=== PATIENT | male | born 1980 | race Hispanic/Latino ===

== ENCOUNTER 2016-10-23 00:05 | Emergency (ER) | payer OTHER ==
[2016-10-23 01:08] VITALS: BMI 39.0
[2016-10-23 01:11] VITALS: BP 142/100; PULSE 76; RESP 15; TEMP 98.9; O2SAT 100
--- NOTE | 2016-10-23 01:34 | ED PDOC ---
Arrival/HPI - General Chief Complaint: Groin Pain Time Seen by Provider: 10/23/16 01:13 Historian: Patient - History of Present Illness Narrative History of Present Illness (Text): 10/23/16 01:33 Devante Correa is a 35 year old male who presents to the Emergency department complaining of right groin pain since yesterday. Patient notes denies any testicular pain and notes pain is present more so in right thigh. Patient also reports he spends on a lot of time standing and is complaining of lower back discomfort. Patient denies any fever, chills, chest pain, shortness of breath, nausea, vomiting, diarrhea, urinary symptoms, saddle paresthesias, weakness/ numbness/tingling in the extremities, neck pain, headache, dizziness, or any other complaints. Time/Duration: Other (yesterday) Symptom Onset: Gradual Symptom Course: Unchanged Activities at Onset: Rest, Light Context: Home Past Medical History - Provider Review Nursing Documentation Reviewed: Yes - Infectious Disease Hx of Infectious Diseases: None - Cardiac Hx Cardiac Disorders: No - Pulmonary Hx Asthma: Yes - Neurological Hx Neurological Disorder: No - HEENT Hx HEENT Disorder: No - Renal Hx Renal Disorder: No - Endocrine/Metabolic Hx Endocrine Disorders: No - Hematological/Oncological Hx Blood Disorders: No - Integumentary Hx Dermatological Disorder: No - Musculoskeletal/Rheumatological Hx Back Pain: Yes - Gastrointestinal Hx Gastrointestinal Disorders: No - Genitourinary/Gynecological Hx Genitourinary Disorders: Yes Other/Comment: overproductive spermatic cord - Psychiatric Hx Psychophysiologic Disorder: No Hx Substance Use: No - Anesthesia Hx Anesthesia: No Hx Anesthesia Reactions: No Hx Malignant Hyperthermia: No Family/Social History - Physician Review Nursing Documentation Reviewed: Yes Family/Social History: No Known Family HX Smoking Status: Never Smoked Hx Alcohol Use: Yes Hx Substance Use: No Allergies/Home Meds Allergies/Adverse Reactions: Allergies No Known Allergies Allergy (Verified 10/23/16 01:07) Review of Systems - Physician Review All systems were reviewed & negative as marked: Yes - Review of Systems Constitutional: Normal. absent: Fevers Eyes: Normal ENT: Normal Respiratory: Normal. absent: SOB, Cough Cardiovascular: Normal. absent: Chest Pain Gastrointestinal: Normal. absent: Abdominal Pain, Diarrhea, Nausea, Vomiting Genitourinary Male: Normal. absent: Dysuria, Frequency, Hematuria, Urinary Output Changes Musculoskeletal: Back Pain, Other (+right groin pain). absent: Neck Pain Skin: Normal. absent: Rash Neurological: Normal. absent: Headache, Dizziness Endocrine: Normal Hemo/Lymphatic: Normal Psychiatric: Normal Physical Exam Vital Signs Reviewed: Yes Vital Signs Temp Pulse Resp BP Pulse Ox 10/23/16 01:10 98.9 F 76 15 142/100 H 100 Temperature: Afebrile Blood Pressure: Normal Pulse: Regular Respiratory Rate: Normal Appearance: Positive for: Well-Appearing, Non-Toxic, Comfortable Pain Distress: None Mental Status: Positive for: Alert and Oriented X 3 - Systems Exam Head: Present: Atraumatic, Normocephalic Pupils: Present: PERRL Extroacular Muscles: Present: EOMI Conjunctiva: Present: Normal Mouth: Present: Moist Mucous Membranes Neck: Present: Normal Range of Motion Respiratory/Chest: Present: Clear to Auscultation, Good Air Exchange. No: Respiratory Distress, Accessory Muscle Use Cardiovascular: Present: Regular Rate and Rhythm, Normal S1, S2. No: Murmurs Abdomen: Present: Normal Bowel Sounds. No: Tenderness, Distention, Peritoneal Signs Back: Present: Normal Inspection Upper Extremity: Present: Normal Inspection. No: Cyanosis, Edema Lower Extremity: Present: Normal Inspection, NORMAL PULSES, Normal ROM, Neurovascularly Intact, Capillary Refill < 2 s. No: Edema, Cyanosis, Tenderness , Swelling, Erythema, Deformity, Temperature Abnormalties Neurological: Present: GCS=15, CN II-XII Intact, Speech Normal Skin: Present: Warm, Dry, Normal Color. No: Rashes Psychiatric: Present: Alert, Oriented x 3, Normal Insight, Normal Concentration Medical Decision Making ED Course and Treatment: 10/23/16 01:34 Impression: 35 year old male complaining of right groin pain and lower back discomfort. Plan: -- US Right Lower Extremity -- CT Lumbar Spine w/o contrast -- Reassess and disposition Prior Visits: Notes and results from previous visits were reviewed. Progress Notes: 10/23/16 01:54 US Right Lower Extremity shows no evidence of DVT. 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 Discs/spinal canal/neural foramina: Multilevel degenerative disc disease noted manifest as disc bulging and subtle disc osteophyte complexes as well as anterior bony spurring. Soft tissues: Unremarkable. IMPRESSION: 1. Multilevel degenerative disc disease noted manifest as disc bulging and subtle disc osteophyte complexes as well as anterior bony spurring. 2. What may reflect OPLL is noted at L1 and L2/3 resulting in mild spinal stenosis. 10/23/16 04:45 On re-evaluation, the patient feels better and is in no acute distress. I have discussed the results and plan with the patient, who expresses understanding. Patient in agreement with plan to discharged home. Patient is stable for discharge. Patient was instructed to follow up with physician/clinic in 1-2 days or return if symptoms worsen or new concerning symptoms arise. - RAD Interpretation Radiology Orders: 10/23/16 01:38 DUPLEX LOWER EXTRM VEIN RIGHT [US] Stat 10/23/16 01:39 LUMBAR SPINE W/O CONTRAST [CT] Stat - Scribe Statement The provider has reviewed the documentation as recorded by the Pilariblaurel Hayes Provider Attestation: All medical record entries made by the Scribe were at my direction and personally dictated by me. I have reviewed the chart and agree that the record accurately reflects my personal performance of the history, physical exam, medical decision making, and the department course for this patient. I have also personally directed, reviewed, and agree with the discharge instructions and disposition. Disposition/Present on Arrival - Present on Arrival Any Indicators Present on Arrival: No History of DVT/PE: No History of Uncontrolled Diabetes: No Urinary Catheter: No History of Decub. Ulcer: No History Surgical Site Infection Following: None - Disposition Have Diagnosis and Disposition been Completed?: Yes Diagnosis: Back pain, Lumbar radiculopathy Disposition: HOME/ ROUTINE Disposition Time: 05:00 Condition: GOOD Discharge Instructions (ExitCare): Back Pain (ED) Referrals: Ector Ceballos JD, MD [Primary Care Provider] - Follow up with primary Forms: WORK NOTE
--- NOTE | 2016-10-23 13:46 | CT ---
PROCEDURE: CT Lumbar Spine without contrast HISTORY: back pain COMPARISON: CT abdomen and pelvis 07/27/16 TECHNIQUE: Axial computed tomography images were obtained of the lumbar spine without the use of intravenous contrast. Coronal and sagittal reformatted images were created and reviewed. Radiation dose: Total exam DLP = 1122.63 mGy-cm. This CT exam was performed using one or more of the following dose reduction techniques: Automated exposure control, adjustment of the mA and/or kV according to patient size, and/or use of iterative reconstruction technique. FINDINGS: VERTEBRAE: No acute compression fractures no retropulsed fragments. Vertebral bodies exhibit normal stature. Vertebral bodies and facets normally aligned. DISCS/SPINAL CANAL/NEURAL FORAMINA: Mild multilevel degenerative spondylosis is present. At the T12-L1 level, there is disc space narrowing more so along the posterior disc margin with prominent on posterior osteophyte possibly associate with calcification - ossification of the posterior longitudinal ligament. Calcified density and does encroach into the ventral surface of the spinal canal resulting in mild canal stenosis and presumed compression of the thecal sac and possibly of the conus at this level on. At the L1-L2 level, there is minor posterior disc space narrowing. Minimal broad-based bulge of the posterior annulus results in some minimal flattening of the ventral surface of the thecal sac. The overall central canal appears marginal to minimally. Exit foramina appear adequate. At the L2-L3 level, there is also minor posterior disc space narrowing with small osteophytic ridge and/or calcification of the posterior longitudinal ligament that results in mild compression of the ventral surface of the thecal sac and mild canal narrowing. Facets are mildly hypertrophic. Exit foramina appear adequate. . At the L3-L4 level, there is minimal posterior disc space narrowing. No disc herniation or significant disc bulge. Facets are hypertrophic. Canal appears relatively adequate. Exit foramina are also adequate. At the L4-L5 level, mild disc space narrowing endplate eburnation. Small osteophytic ridge disc complex slightly larger on the left than right with some flattening of the ventral surface of thecal sac again more so on the left side. Central canal appears adequate. Facets hypertrophic with vacuum facet phenomena. Exit foramina are marginal to adequate. At the L5-S1 level, there is disc space narrowing. Minimal broad-based bulge of the posterior annulus. Facets are hypertrophic with vacuum facet phenomenon. . Central canal appears adequate. Proximal exit foramina are mildly narrowed PARASPINAL SOFT TISSUES: Unremarkable. OTHER FINDINGS: None. IMPRESSION: No acute fractures. Mild multilevel degenerative spondylosis most notably affecting the at T12-L1, L2-L3 and L5-S1 levels as described.
--- NOTE | 2016-10-24 08:15 | US ---
PROCEDURE: Right lower extremity venous US HISTORY: Leg pain and swelling. Evaluate for DVT. PHYSICIAN(S): Keegan Calderon M.D. TECHNIQUE: Duplex sonography and color-flow Doppler with graded compression were used to evaluate the deep venous system of the right lower extremity. FINDINGS: The visualized deep venous system of the right lower extremity is sonographically normal and compressible. Normal waveforms and augmentation are seen. There is no sonographic evidence for deep venous thrombosis in the visualized segments of the right lower extremity. IMPRESSION: 1. No sonographic evidence for deep venous thrombosis in the visualized segments of the right lower extremity.
== END 2016-10-23 04:45 | disposition home or self-care (01) ==
LOC: ED 00:05
DX: M54.16 Radiculopathy, lumbar region (principal); M54.9 Dorsalgia, unspecified

== ENCOUNTER 2017-01-30 13:14 | Emergency (ER) | payer OTHER ==
[2017-01-30 13:14] VITALS: BMI 39.0
--- NOTE | 2017-01-30 15:36 | ED PDOC ---
Arrival/HPI - General Historian: Patient - History of Present Illness Time/Duration: < week Symptom Onset: Gradual Symptom Course: Intermittent Quality: Pressure Severity Level: 4 Activities at Onset: Rest <Spencer Gómez - Last Filed: 01/30/17 18:23> <Germán Mustafa - Last Filed: 02/01/17 18:46> - General Chief Complaint: Headache Time Seen by Provider: 01/30/17 15:16 - History of Present Illness Narrative History of Present Illness (Text): 01/30/17 15:35 36yo M with PMHx of Asthma here for evaluation of headache. Pain started 3 days ago, comes and goes. Located on the lateral aspect of bilateral head, radiates to the top of the head. He c/o some vision changes that start after the onset of the headache. Headache comes and goes, the longest duration of the headache was about 5 hours. Denies any nausea, no vomiting. No Abd pain. No Fevers or chills. No Chest pain, shortness of breath. No sick contacts. No focal deficits. No further complaints. PMHx: Asthma PSHx: Denies Social Hx: Denies Tobacco use. Rare ETOH use. Denies any illicit drug use NKDA (Spencer Gómez) Past Medical History - Provider Review Nursing Documentation Reviewed: Yes - Infectious Disease Hx of Infectious Diseases: None - Cardiac Hx Cardiac Disorders: No - Pulmonary Hx Asthma: Yes - Neurological Hx Neurological Disorder: No - HEENT Hx HEENT Disorder: No - Renal Hx Renal Disorder: No - Endocrine/Metabolic Hx Endocrine Disorders: No - Hematological/Oncological Hx Blood Disorders: No - Integumentary Hx Dermatological Disorder: No - Musculoskeletal/Rheumatological Hx Back Pain: Yes - Gastrointestinal Hx Gastrointestinal Disorders: No - Genitourinary/Gynecological Hx Genitourinary Disorders: Yes Other/Comment: overproductive spermatic cord - Psychiatric Hx Psychophysiologic Disorder: No Hx Substance Use: No - Anesthesia Hx Anesthesia: No Hx Anesthesia Reactions: No Hx Malignant Hyperthermia: No <Spencer Gómez - Last Filed: 01/30/17 18:23> Family/Social History - Physician Review Nursing Documentation Reviewed: Yes Family/Social History: No Known Family HX Smoking Status: Never Smoked Hx Alcohol Use: Yes Hx Substance Use: No <Spencer Gómez - Last Filed: 01/30/17 18:23> Allergies/Home Meds <Spencer Gómez - Last Filed: 01/30/17 18:23> <Germán Mustafa P - Last Filed: 02/01/17 18:46> Allergies/Adverse Reactions: Allergies No Known Allergies Allergy (Verified 10/23/16 01:07) Home Medications: Home Meds Medication Instructions Recorded Confirmed Albuterol HFA [Ventolin HFA 90 2 puff IH PRN PRN 01/30/17 01/30/17 mcg/actuation (8 g)] Review of Systems - Physician Review All systems were reviewed & negative as marked: Yes - Review of Systems Constitutional: Normal. absent: Fevers Eyes: Vision Changes. absent: Photophobia, Eye Pain ENT: absent: Hearing Changes, Tinnitus, Voice Changes Respiratory: absent: Cough, Wheezing Cardiovascular: absent: Chest Pain, Edema, Calf Pain Gastrointestinal: absent: Abdominal Pain, Nausea, Vomiting Genitourinary Male: absent: Dysuria, Frequency Musculoskeletal: absent: Back Pain Neurological: Headache. absent: Dizziness Endocrine: absent: Diaphoresis, Polyuria, Polydipsia Psychiatric: absent: Anxiety, Depression <Spencer Gómez - Last Filed: 01/30/17 18:23> Physical Exam Vital Signs Reviewed: Yes Temperature: Afebrile Blood Pressure: Hypertensive Pulse: Regular Respiratory Rate: Normal Appearance: Positive for: Well-Appearing, Non-Toxic, Comfortable Pain Distress: Mild Mental Status: Positive for: Alert and Oriented X 3 - Systems Exam Head: Present: Atraumatic, Normocephalic Pupils: Present: PERRL Extroacular Muscles: Present: EOMI Mouth: Present: Moist Mucous Membranes Pharnyx: Present: Normal Respiratory/Chest: Present: Clear to Auscultation, Good Air Exchange. No: Respiratory Distress, Wheezes, Decreased Breath Sounds Cardiovascular: Present: Normal S1, S2. No: Murmurs Abdomen: Present: Normal Bowel Sounds. No: Tenderness, Distention, Peritoneal Signs, Rebound, Guarding Back: Present: Normal Inspection Upper Extremity: Present: Normal Inspection. No: Cyanosis, Edema Lower Extremity: Present: Normal Inspection. No: Edema, CALF TENDERNESS Neurological: Present: GCS=15, CN II-XII Intact, Speech Normal, Motor Func Grossly Intact, Normal Sensory Function, Gait Normal Skin: Present: Warm, Dry, Normal Color. No: Diaphoretic Psychiatric: Present: Alert, Oriented x 3, Normal Insight <Spencer Gómez - Last Filed: 01/30/17 18:23> Medical Decision Making <Spencer Gómez - Last Filed: 01/30/17 18:23> <Germán Mustafa - Last Filed: 02/01/17 18:46> ED Course and Treatment: 01/30/17 16:42 36yo M with PMHx of Asthma here for evaluation of headache for 3 days - CT Head - Reglan - Reassess and dispo 01/30/17 16:50 - BP 150s/100s on triage noted. - Repeat BP 146/96. - Awaiting CT 01/30/17 18:14 Reevaluated patient. Patient feels better. Discussed negative CT findings. Plan for close outpatient follow-up with PMD. Patient understands and agrees with plan. All questions and concerns addressed. CT Head - Negative for any acute findings. No bleed. No mass effect. (Spencer Gómez) Patient Seen With Resident: Patient was seen and evaluated with resident. Came up with plan and treatment together. Gradual onset headache that resolved completely then returns. No FH of brain aneurysms. +FH migraines. Normal neuro exam: nl CN, no focal deficits, normal cerebellar fxn, steady gait. Very low susp for SAH, do not feel LP is warranted at this time. Pt improved w rx in the ED. (Germán Mustafa) - RAD Interpretation Radiology Orders: 01/30/17 15:45 HEAD W/O CONTRAST [CT] Stat - Medication Orders Current Medication Orders: Discontinued Medications Metoclopramide HCl (Reglan) 10 mg IVP STAT STA Stop: 01/30/17 15:46 Last Admin: 01/30/17 16:30 Dose: 10 mg - PA / SLIP DUMPER / Resident Statement / has reviewed & agrees with the documentation as recorded. BECCA has examined the patient and agrees with the treatment plan. <Spencer Gómez - Last Filed: 01/30/17 18:23> - Scribe Statement The provider has reviewed the documentation as recorded by the Scribe <Germán Mustafa - Last Filed: 02/01/17 18:46> - Scribe Statement Bhupendra Albarran Provider Scribe Attestation: All medical record entries made by the Scribe were at my direction and personally dictated by me. I have reviewed the chart and agree that the record accurately reflects my personal performance of the history, physical exam, medical decision making, and the department course for this patient. I have also personally directed, reviewed, and agree with the discharge instructions and disposition. (Germán Mustafa) Disposition/Present on Arrival - Present on Arrival Any Indicators Present on Arrival: No History of DVT/PE: No History of Uncontrolled Diabetes: No Urinary Catheter: No History of Decub. Ulcer: No History Surgical Site Infection Following: None - Disposition Have Diagnosis and Disposition been Completed?: Yes Disposition Time: 18:16 Patient Plan: Discharge <Spencer Gómez - Last Filed: 01/30/17 18:23> <Germán Mustafa - Last Filed: 02/01/17 18:46> - Disposition Diagnosis: Headache Disposition: HOME/ ROUTINE Condition: GOOD Discharge Instructions (ExitCare): Tension Headache (ED) Additional Instructions: 1. Follow up with your primary care physician as soon as possible 2. Rest and stay well hydrated 3. Return to the ER with any concerning symptoms Referrals: PCP,NO [Primary Care Provider] - Follow up with primary Forms: [employer] ([place]an), WORK NOTE
[2017-01-30 17:29] VITALS: O2SAT 99
--- NOTE | 2017-01-30 17:39 | CT ---
PROCEDURE: CT HEAD WITHOUT CONTRAST. HISTORY: headache COMPARISON: None available. TECHNIQUE: Axial computed tomography images were obtained through the head/brain without intravenous contrast. Radiation dose: Total exam DLP = 809.98 mGy-cm. This CT exam was performed using one or more of the following dose reduction techniques: Automated exposure control, adjustment of the mA and/or kV according to patient size, and/or use of iterative reconstruction technique. FINDINGS: HEMORRHAGE: No intracranial hemorrhage. BRAIN: No mass effect or edema. No atrophy or chronic microvascular ischemic changes. VENTRICLES: Unremarkable. No hydrocephalus. CALVARIUM: Unremarkable. PARANASAL SINUSES: Unremarkable as visualized. No significant inflammatory changes. MASTOID AIR CELLS: Unremarkable as visualized. No inflammatory changes. OTHER FINDINGS: None. IMPRESSION: No acute intracranial abnormalities. No significant findings to account for the clinical presentation.
[2017-01-30 18:53] VITALS: BP 148/80; PULSE 82; RESP 16; TEMP 98
== END 2017-01-30 18:51 | disposition home or self-care (01) ==
LOC: ED 13:14
DX: R51 Headache (principal)
CPT/HCPCS: 70450; 96374; 99284; J2765

== ENCOUNTER 2017-02-06 16:08 | Emergency (ER) | payer OTHER ==
[2017-02-06 16:11] VITALS: BMI 39.0
[2017-02-06 16:16] VITALS: TEMP 97.5
[2017-02-06] MEDS ORDERED: Sodium Chloride 0.9% 1,000 ML IV STA (16:30)
[2017-02-06 17:34] LABS: URINE BILIRUBIN NEGATIVE (NEGATIVE); URINE BLOOD TRACE-INTACT (NEGATIVE); URINE GLUCOSE (UA) NEGATIVE (NEGATIVE); URINE LEUKOCYTE ESTERASE NEGATIVE Leu/uL (NEGATIVE); URINE NITRATE NEGATIVE (NEGATIVE); URINE PROTEIN 100 mg/dL (<30 mg/dL); URINE UROBILINOGEN 0.2 E.U./dL (<1 E.U./dL)
[2017-02-06 17:38] LABS: BASO # 0.02 K/mm3 (0.0-2.0); BASO % 0.3 % (0.0-3.0); EOS # 0.2 (0.0-0.7); GRAN # 4.93 (1.4-6.5); GRAN % 65.5 % (50.0-68.0); HEMOGLOBIN 13.4 g/dL (14.0-18.0); LYMPH # 1.8 (1.2-3.4); MEAN CELL VOLUME 79.2 fl (80.0-105.0); MEAN CORPUSCULAR HEMOGLOBIN 26.9 pg (25.0-35.0); MEAN CORPUSCULAR HGB CONC 33.9 g/dl (31.0-37.0); MEAN PLATELET VOLUME 10.3 fl (7.0-11.0); MONO # 0.6 (0.1-0.6); MONO % 8.2 % (1.0-6.0); PLATELET COUNT 239 10^3/uL (120.0-450.0); RBC 4.99 10^6/uL (3.5-6.1); RED CELL DISTRIBUTION WIDTH 13.4 % (11.5-14.5); WHITE BLOOD COUNT 7.5 10^3/ul (4.5-11.0)
[2017-02-06 17:38] LABS: URINE APPEARANCE TURBID (CLEAR); URINE COLOR YELLOW (YELLOW)
--- NOTE | 2017-02-06 17:38 | RAD ---
HISTORY: chest pain COMPARISON: None available. TECHNIQUE: Chest, one view. FINDINGS: Examination limited by habitus. LUNGS: No focal consolidation. Please note that chest x-ray has limited sensitivity for the detection of pulmonary masses. PLEURA: No significant pleural effusion identified. No definite pneumothorax . CARDIOVASCULAR: The cardiomediastinal silhouette appears within normal limits of size. OSSEOUS STRUCTURES: No acute osseous abnormality identified. VISUALIZED UPPER ABDOMEN: Unremarkable. OTHER FINDINGS: None. IMPRESSION: No focal consolidation, significant pleural effusion, or definite pneumothorax identified.
[2017-02-06 17:47] LABS: SALICYLATE < 1 mg/dL (2.0-20.0)
[2017-02-06 17:48] LABS: ALB/GLOB RATIO 1.5 (1.1-1.8); ALBUMIN 4.2 g/dL (3.0-4.8); ALT/SGPT 28 U/L (7-56); AST/SGOT 21 U/L (15-59); BLOOD UREA NITROGEN 11 mg/dL (7-21); GFR AFRICAN-AMERICAN > 60; GFR NON-AFRICAN AMERICAN > 60
[2017-02-06 17:52] LABS: BARBITURATES, UR POSITIVE (NEGATIVE); BENZODIAZEPINES, UR NEGATIVE (NEGATIVE); OPIATES, UR NEGATIVE (NEGATIVE); PHENCYCLIDINE, UR NEGATIVE (NEGATIVE)
[2017-02-06 17:52] LABS: ACETAMINOPHEN < 10.0 ug/ml (10.0-20.0); PARTIAL THROMBOPLASTIN TIME 27.5 Seconds (23.7-30.8); PROTHROMBIN TIME 10.8 Seconds (9.9-11.8)
[2017-02-06 17:53] LABS: D DIMER 0.64 mg/L FEU (0-0.50)
[2017-02-06 17:55] LABS: URINE BACTERIA TRACE (NEG); URINE EPITHELIAL CELLS 0 - 2 /hpf (0-5); URINE RBC 0 - 2 /hpf (0-2); URINE WBC 0 - 2 /hpf (0-6)
[2017-02-06 18:00] LABS: TROPONIN I < 0.01 ng/mL
[2017-02-06 18:04] LABS: CK-MB 1.5 ng/mL (0.0-3.6)
--- NOTE | 2017-02-06 18:04 | ED PDOC ---
Arrival/HPI - General Chief Complaint: Chest Pain Time Seen by Provider: 02/06/17 16:13 Historian: Patient - History of Present Illness Narrative History of Present Illness (Text): 02/06/17 18:00 36-year-old male presents today with chest pain shortness of breath headache dizziness and feeling shaky. Patient states symptoms started around 3:00 today for which he then took 6 ESGIC tablets to relieve his headache. Patient states he's been having headaches on and off for the past week. He was seen in the emergency room had a CAT scan of the head which was normal. Patient was then seen by his primary care physician and started on theseESGIC tablets for which he took too many today. Patient states the headache has since resolved. He is now still complaining of chest pain and shortness of breath. Complaining of dizziness and generalized weakness. Patient states he feels very shaky.Patient denies a history of smoking. Patient denies a history of recent travel. Denies lower leg pain. Denies abdominal pain. No nausea or vomiting. Past Medical History - Provider Review Nursing Documentation Reviewed: Yes - Travel History Have you recently traveled outside [place] w/in the past 3 mons?: No - Infectious Disease Hx of Infectious Diseases: None - Tetanus Immunization Tetanus Immunization: Unknown - Cardiac Hx Cardiac Disorders: No - Pulmonary Hx Asthma: Yes - Neurological Hx Neurological Disorder: No - HEENT Hx HEENT Disorder: No - Renal Hx Renal Disorder: No - Endocrine/Metabolic Hx Endocrine Disorders: No - Hematological/Oncological Hx Blood Disorders: No - Integumentary Hx Dermatological Disorder: No - Musculoskeletal/Rheumatological Hx Back Pain: Yes - Gastrointestinal Hx Gastrointestinal Disorders: No - Genitourinary/Gynecological Hx Genitourinary Disorders: Yes Other/Comment: overproductive spermatic cord - Psychiatric Hx Psychophysiologic Disorder: No Hx Substance Use: No - Anesthesia Hx Anesthesia: No Hx Anesthesia Reactions: No Hx Malignant Hyperthermia: No Family/Social History - Physician Review Nursing Documentation Reviewed: Yes Family/Social History: Unknown Family HX Smoking Status: Never Smoked Hx Alcohol Use: Yes Hx Substance Use: No Allergies/Home Meds Allergies/Adverse Reactions: Allergies No Known Allergies Allergy (Verified 10/23/16 01:07) Home Medications: Home Meds Medication Instructions Recorded Confirmed Acetaminophen/Butalbital/Caf 1 tab PO PRN PRN 02/06/17 02/06/17 [Fioricet] Review of Systems - Review of Systems Constitutional: Fatigue. absent: Fevers ENT: absent: Sore Throat, Sinus Congestion Respiratory: SOB Cardiovascular: Chest Pain Gastrointestinal: absent: Abdominal Pain, Vomiting, Anorexia Genitourinary Male: absent: Dysuria Musculoskeletal: absent: Arthralgias, Back Pain Skin: absent: Rash, Pruritis Neurological: Headache, Dizziness Psychiatric: Anxiety (hx of anxiety). absent: Depression, Suicidal Ideation Physical Exam Vital Signs Reviewed: Yes Vital Signs Temp Pulse Resp BP Pulse Ox 02/06/17 20:02 80 16 147/75 98 02/06/17 17:50 156/103 H 02/06/17 16:15 97.5 F L 88 24 192/121 H 99 Temperature: Afebrile Blood Pressure: Hypertensive Pulse: Regular Respiratory Rate: Normal Appearance: Positive for: Well-Appearing, Non-Toxic, Comfortable Pain Distress: None Mental Status: Positive for: Alert and Oriented X 3 - Systems Exam Head: Present: Atraumatic Pupils: Present: PERRL Extroacular Muscles: Present: EOMI Conjunctiva: Present: Normal Ears: Present: Normal Mouth: Present: Moist Mucous Membranes Neck: Present: Normal Range of Motion Respiratory/Chest: Present: Clear to Auscultation Cardiovascular: Present: Regular Rate and Rhythm Abdomen: No: Tenderness Upper Extremity: Present: Other (Muscle strength 5 out of 5 bilaterally) Lower Extremity: Present: Other (Muscle strength 5 out of 5 bilaterally). No: CALF TENDERNESS Neurological: Present: GCS=15, Motor Func Grossly Intact, Normal Sensory Function, Gait Normal Skin: Present: Warm, Dry, Normal Color. No: Rashes Psychiatric: Present: Alert, Oriented x 3 Medical Decision Making ED Course and Treatment: 02/06/17 18:05 36yr old male with HTN with cp and sob. with headache that resolved after taking 6 FIorcets. cbc; wnl cmp; wnl ekg; normal sinus rhythm at [address] elevations and normal intervals cxr; wnl tylenol; wnl Alcohol wnl Salicylates within normal limits. Urinalysis: Trace blood Urine drug screen positive for barbiturates Repeat Tylenol level at the 4 hour raquel from the onset of ingestion is within normal limits d-dimer slightly elevated at 0.64 CAT scan angiography of the chest: FINDINGS: Limitations: Motion artifact - mild. Suboptimal contrast opacification. Pulmonary arteries: No definite pulmonary embolism. Aorta: No aneurysm. No dissection. Lungs: No consolidation. 0.4 cm LEFT lower lobe nodule. Pleural space: No significant effusion. No pneumothorax. Heart: No cardiomegaly. No significant pericardial effusion. Bones/joints: No acute fracture. No dislocation. Soft tissues: Minimal gynecomastia. Lymph nodes: No pathologically enlarged lymph nodes. IMPRESSION: 1. No definite CT evidence of pulmonary embolism. 2. Pulmonary nodules. For low-risk patients, no follow-up is necessary. For high-risk patients (smoking history or other known risk factors) an optional CT at 12 months could be performed. 3. Incidental/non-acute findings are described above. Patient was offered admission to the hospital for chest pain shortness of breath and recurrent headaches with elevated blood pressure. Patient refused admission to the hospital states he needs to go home. Does not want to stay in the hospital. Patient has been advised to not leave the emergency room but has decided to go AGAINST MEDICAL ADVICE. The patient possesses capacity to make decisions and has voiced understanding to all my warnings of potential worsening of the condition for which medical care was sought. I have discussed all known and potential risks and consequences to the patient leaving AGAINST MEDICAL ADVICE. Patient is leaving against medical advise. AMA form signed. witness by MACIE nieves. I have advised the patient that he can return at any point in time to continue his care. I've advised follow-up with a drum builder and neurologist. all aspects of this case were discussed the attending of record. Impression: Chest pain, shortness of breath, headache, hypertension AMA RETURN IF YOU WISH TO CONTINUE YOUR CARE FOLLOW UP WITH THE HOLE DIGGER FOLLOW UP WITH THE NEUROLOGIST FOLLOW UP WITH YOUR PRIMARY CARE PHYSICIAN - Lab Interpretations Lab Results: 02/06/17 17:23 02/06/17 17:23 Lab Results 02/06/17 20:20: Acetaminophen < 10.0 L 02/06/17 17:23: PT 10.8, INR 1.00, APTT 27.5, D-Dimer, Quantitative 0.64 H 02/06/17 17:23: WBC 7.5 D, RBC 4.99, Hgb 13.4 L, Hct 39.5 L, MCV 79.2 L, MCH 26.9, MCHC 33.9, RDW 13.4, Plt Count 239, MPV 10.3, Gran % 65.5, Lymph % (Auto) 24.0, [place] % (Auto) 8.2 H, Eos % (Auto) 2.0, Baso % (Auto) 0.3, Gran # 4.93, Lymph # 1.8, [place] # 0.6, Eos # 0.2, Baso # 0.02 02/06/17 17:23: Salicylates < 1 L, Acetaminophen < 10.0 L 02/06/17 17:23: Alcohol, Quantitative < 10 02/06/17 17:23: Sodium 139, Potassium 3.4 L, Chloride 104, Carbon Dioxide 23, Anion Gap 15, BUN 11, Creatinine 0.9, Est GFR ( Amer) > 60, Est GFR (Non- Af Amer) > 60, Random Glucose 116 H, Calcium 9.0, Total Bilirubin 0.3, AST 21, ALT 28, Alkaline Phosphatase 47, Lactate Dehydrogenase 386, Total Creatine Kinase 276 H, CK-MB (CK-2) 1.5, CK-MB (CK-2) % Cancelled, Troponin I < 0.01, Total Protein 6.9, Albumin 4.2, Globulin 2.8, Albumin/Globulin Ratio 1.5 02/06/17 17:10: Urine Opiates Screen Negative, Urine Methadone Screen Negative, Ur Barbiturates Screen Positive H, Ur Phencyclidine Scrn Negative, Ur Amphetamines Screen Negative, U Benzodiazepines Scrn Negative, U Oth Cocaine Metabols Negative, U Cannabinoids Screen Negative 02/06/17 17:10: Urine Color Yellow, Urine Appearance Turbid, Urine pH 7.0, Ur Specific [place] 1.020, Urine Protein 100 H, Urine Glucose (UA) Negative, Urine Ketones Negative, Urine Blood Trace-intact H, Urine Nitrate Negative, Urine Bilirubin Negative, Urine Urobilinogen 0.2, Ur Leukocyte Esterase Negative, Urine RBC 0 - 2, Urine WBC 0 - 2, Ur Epithelial Cells 0 - 2, Urine Bacteria Trace - RAD Interpretation Radiology Orders: 02/06/17 16:28 CHEST PORTABLE [RAD] Stat 02/06/17 18:27 ANGIO CHEST PE PROTOCOL [CT] Stat - Medication Orders Current Medication Orders: Discontinued Medications Sodium Chloride (Sodium Chloride 0.9%) 1,000 mls @ 999 mls/hr IV .Q1H1M STA Stop: 02/06/17 17:30 Last Admin: 02/06/17 17:32 Dose: 999 mls/hr Iohexol (Omnipaque 350 100 Ml) Confirm Administered Dose 350 mg .ROUTE .STK-MED ONE Stop: 02/06/17 18:40 Metoclopramide HCl (Reglan) 10 mg IVP STAT STA Stop: 02/06/17 16:31 Last Admin: 02/06/17 17:32 Dose: 10 mg Disposition/Present on Arrival - Present on Arrival Any Indicators Present on Arrival: No History of DVT/PE: No History of Uncontrolled Diabetes: No Urinary Catheter: No History of Decub. Ulcer: No History Surgical Site Infection Following: None - Disposition Have Diagnosis and Disposition been Completed?: Yes Diagnosis: Chest pain, Shortness of breath, Headache, Hypertension Disposition: AGAINST MEDICAL ADVICE Disposition Time: 21:41 Patient Plan: Other (AMA) Patient Problems: Current Active Problems Problem Status Onset Chest pain Acute Headache Acute Hypertension Acute Shortness of breath Acute Condition: UNKNOWN Discharge Instructions (ExitCare): Chest Pain (ED) Additional Instructions: RETURN IF YOU WISH TO CONTINUE YOUR CARE FOLLOW UP WITH THE HOLE DIGGER FOLLOW UP WITH THE NEUROLOGIST FOLLOW UP WITH YOUR PRIMARY CARE PHYSICIAN Referrals: Katherin Martinez MD [Primary Care Provider] - Follow up with primary Keegan Hale MD [Staff Provider] - Follow up with primary Kulwant Aragon MD [Staff Provider] - Follow up with primary Forms: [facility] (Yoruba), WORK NOTE
[2017-02-06] MEDS ORDERED: Iohexol 350 MG/100 ML VIAL ONE (18:39)
--- NOTE | 2017-02-06 19:06 | CARD ---
APPROVED REPORT EKG Measurement Heart [id number] [place] [id number] [id number] <Conclusion> Normal sinus rhythm Possible Left atrial enlargement Left ventricular hypertrophy Prolonged QT Abnormal ECG
--- NOTE | 2017-02-06 19:07 | CARD ---
APPROVED REPORT EKG Measurement Heart [id number] [place] [id number] [id number] <Conclusion> Normal sinus rhythm Left ventricular hypertrophy with QRS widening Abnormal ECG
[2017-02-06 20:02] VITALS: RESP 16
--- NOTE | 2017-02-06 21:25 | CT ---
EXAM: CT Angiography Chest With Intravenous Contrast CLINICAL HISTORY: 36 years old, male; Pain; Chest pressure; Additional info: Cp SOB TECHNIQUE: Axial computed tomographic angiography images of the chest with intravenous contrast using pulmonary embolism protocol. All CT scans at this facility use one or more dose reduction techniques, viz.: automated exposure control; ma/kV adjustment per patient size (including targeted exams where dose is matched to indication; i.e. head); or iterative reconstruction technique. MIP reconstructed images were created and reviewed. Coronal and sagittal reformatted images were created and reviewed. CONTRAST: 100 mL of omni administered intravenously. COMPARISON: DX - CHEST PORTABLE 02/06/2017 4:42:45 PM FINDINGS: Limitations: Motion artifact - mild. Suboptimal contrast opacification. Pulmonary arteries: No definite pulmonary embolism. Aorta: No aneurysm. No dissection. Lungs: No consolidation. 0.4 cm LEFT lower lobe nodule. Pleural space: No significant effusion. No pneumothorax. Heart: No cardiomegaly. No significant pericardial effusion. Bones/joints: No acute fracture. No dislocation. Soft tissues: Minimal gynecomastia. Lymph nodes: No pathologically enlarged lymph nodes. IMPRESSION: 1. No definite CT evidence of pulmonary embolism. 2. Pulmonary nodules. For low-risk patients, no follow-up is necessary. For high-risk patients (smoking history or other known risk factors) an optional CT at 12 months could be performed. 3. Incidental/non-acute findings are described above.
[2017-02-06 22:42] VITALS: BP 164/90; PULSE 76; O2SAT 99
== END 2017-02-06 22:25 | disposition left against medical advice (07) ==
LOC: ED 16:08
DX: I10 Essential (primary) hypertension (principal); R07.9 Chest pain, unspecified; R06.02 Shortness of breath; R51 Headache
CPT/HCPCS: 71010; 71275; 80053; 80320; 80324; 80329; 80345; 80346; 80349; 80353; 80358; 80361; 81001; 82550; 82553; 83615; 83992; 84484; 85025; 85378; 85610; 85730; 93005; 96361; 96374; 99284; J2765; J7040; Q9967

== ENCOUNTER 2017-02-25 19:22 | Emergency (ER) | payer OTHER ==
[2017-02-25 19:28] VITALS: BMI 40.7
[2017-02-25 19:34] VITALS: TEMP 98.3
--- NOTE | 2017-02-25 19:40 | ED PDOC ---
Arrival/HPI - General Chief Complaint: Chest Pain Time Seen by Provider: 02/25/17 19:29 Historian: Patient - History of Present Illness Narrative History of Present Illness (Text): 02/25/17 19:41 A 36 year old male, whose past medical history includes, asthma, htn, and a epididymal cyst, presents to the emergency department for chest pain and palpitations, which began 1 hour ago. The patient states the pain in non- radiating. The patient denies any fevers, shortness of breath, cough, abdominal pain, or any other complaints at this time. Time/Duration: 1 hour Symptom Onset: Sudden Symptom Course: Unchanged Activities at Onset: Light Context: Home Past Medical History - Provider Review Nursing Documentation Reviewed: Yes - Infectious Disease Hx of Infectious Diseases: None - Tetanus Immunization Tetanus Immunization: Unknown - Cardiac Hx Cardiac Disorders: No Hx Hypertension: Yes - Pulmonary Hx Asthma: Yes - Neurological Hx Neurological Disorder: No - HEENT Hx HEENT Disorder: No - Renal Hx Renal Disorder: No - Endocrine/Metabolic Hx Endocrine Disorders: No - Hematological/Oncological Hx Blood Disorders: No - Integumentary Hx Dermatological Disorder: No - Musculoskeletal/Rheumatological Hx Back Pain: Yes - Gastrointestinal Hx Gastrointestinal Disorders: No - Genitourinary/Gynecological Hx Genitourinary Disorders: Yes Other/Comment: overproductive spermatic cord - Psychiatric Hx Psychophysiologic Disorder: No Hx Substance Use: No - Anesthesia Hx Anesthesia: No Hx Anesthesia Reactions: No Hx Malignant Hyperthermia: No Family/Social History - Physician Review Nursing Documentation Reviewed: Yes Family/Social History: No Known Family HX Smoking Status: Never Smoked Hx Alcohol Use: Yes Hx Substance Use: No Allergies/Home Meds Allergies/Adverse Reactions: Allergies No Known Allergies Allergy (Verified 02/25/17 19:28) Home Medications: Home Meds Medication Instructions Recorded Confirmed Atenolol [Tenormin] 25 mg PO DAILY 02/25/17 02/25/17 Review of Systems - Physician Review All systems were reviewed & negative as marked: Yes - Review of Systems Constitutional: absent: Fevers Respiratory: absent: SOB, Cough Cardiovascular: Chest Pain, Palpitations Gastrointestinal: absent: Abdominal Pain Physical Exam Vital Signs Reviewed: Yes Vital Signs Temp Pulse Resp BP Pulse Ox 02/25/17 21:00 87 16 143/80 99 02/25/17 20:30 91 H 16 154/95 H 99 02/25/17 20:00 92 H 16 150/86 99 02/25/17 19:33 98.3 F 93 H 14 145/83 97 02/25/17 19:28 93 H 14 Temperature: Afebrile Blood Pressure: Normal Pulse: Tachycardic Respiratory Rate: Normal Appearance: Positive for: Well-Appearing, Non-Toxic, Comfortable Pain Distress: None Mental Status: Positive for: Alert and Oriented X 3 - Systems Exam Head: Present: Atraumatic, Normocephalic Pupils: Present: PERRL Extroacular Muscles: Present: EOMI Conjunctiva: Present: Normal Mouth: Present: Moist Mucous Membranes Neck: Present: Normal Range of Motion Respiratory/Chest: Present: Clear to Auscultation, Good Air Exchange. No: Respiratory Distress, Accessory Muscle Use Cardiovascular: Present: Regular Rate and Rhythm, Normal S1, S2. No: Murmurs Abdomen: Present: Normal Bowel Sounds. No: Tenderness, Distention, Peritoneal Signs Back: Present: Normal Inspection Upper Extremity: Present: Normal Inspection. No: Cyanosis, Edema Lower Extremity: Present: Normal Inspection. No: Edema Neurological: Present: GCS=15, CN II-XII Intact, Speech Normal Skin: Present: Warm, Dry, Normal Color. No: Rashes Psychiatric: Present: Alert, Oriented x 3, Normal Insight, Normal Concentration Medical Decision Making ED Course and Treatment: 02/25/17 19:42 Impression: A 36 year old male with chest pain. Plan: -- EKG -- Chest X-ray -- Labs -- Nasal Cannula -- Urinalysis -- Reassess and disposition Prior Visits: Notes and results from previous visits were reviewed. The patient was last seen in the emergency department on 02/06/17 for anxiety. The patient was discharged home. Progress Notes: Reviewed EKG, NSR at 92 bpm[address] Non-specific ST/T wave changes. 02/25/17 20:25 Reviewed radiology, CXR shows no acute processes. 02/25/17 20:[address] Fry, who is aware and agrees with plan. Accepts pt in to hospitalist service. logistics vice president notified. 02/25/17 21:05 Leaving Against Medical Advice (AMA): The patient is choosing to leave against medical advice. I have personally explained to the patient that choosing to do so may result in permanent bodily harm or . I have discussed at great length that without further evaluation and monitoring there may be unforeseen circumstances and/or deterioration causing permanent bodily harm or as a result of their choice. The patient is alert, oriented, and shows the mental capacity to make clear decisions regarding the patients health care at this time. The patient continues to wish to leave against medical advice. In light of the patients decision to leave against medical advice, follow-up has been arranged and the patient is aware of the importance to following up as instructed. The patient has been advised that they should return to the emergency room immediately if they change their mind at any time, or if their condition begins to change or worsen in any way./ - Lab Interpretations Lab Results: 02/25/17 19:30 02/25/17 19:30 Lab Results 02/25/17 19:30: Sodium 141, Potassium 4.1, Chloride 104, Carbon Dioxide 25, Anion Gap 16, BUN 12, Creatinine 1.0, Est GFR ( Amer) > 60, Est GFR (Non- Af Amer) > 60, Random Glucose 112 H, Calcium 9.4, Magnesium 2.0, Total Bilirubin 0.4, AST 29, ALT 37, Alkaline Phosphatase 58, Lactate Dehydrogenase 411, Total Creatine Kinase 147, Troponin I < 0.01, Total Protein 7.6, Albumin 4.3, Globulin 3.3, Albumin/Globulin Ratio 1.3 02/25/17 19:30: WBC 9.6 D, RBC 5.51, Hgb 15.1, Hct 43.7, MCV 79.3 L, MCH 27.4, MCHC 34.6, RDW 13.5, Plt Count 271, MPV 10.4, Gran % 72.5 H, Lymph % (Auto) 19.0 L, [place] % (Auto) 6.5 H, Eos % (Auto) 1.8, Baso % (Auto) 0.2, Gran # 6.99 H , Lymph # 1.8, [place] # 0.6, Eos # 0.2, Baso # 0.02 I have reviewed the lab results: Yes - RAD Interpretation Radiology Orders: 02/25/17 19:39 CHEST PORTABLE [RAD] Stat Fender Mechanic: ED Physician - EKG Interpretation Interpreted by ED Physician: Yes Type: 12 lead EKG - Medication Orders Current Medication Orders: Discontinued Medications Aspirin (Ecotrin) 325 mg PO STAT STA Stop: 02/25/17 19:48 Last Admin: 02/25/17 20:04 Dose: 325 mg Lorazepam (Ativan) 1 mg PO ONCE ONE PRN Reason: Protocol Stop: 02/25/17 19:49 Last Admin: 02/25/17 20:04 Dose: 1 mg Nitroglycerin (Nitro-Bid 2% Oint) 1 ea TOP ONCE STA Stop: 02/25/17 19:48 Last Admin: 02/25/17 20:04 Dose: 1 ea - Scribe Statement Radha Bartlett Provider Scribe Attestation: All medical record entries made by the Scribe were at my direction and personally dictated by me. I have reviewed the chart and agree that the record accurately reflects my personal performance of the history, physical exam, medical decision making, and the department course for this patient. I have also personally directed, reviewed, and agree with the discharge instructions and disposition. Disposition/Present on Arrival - Present on Arrival Any Indicators Present on Arrival: No History of DVT/PE: No History of Uncontrolled Diabetes: No Urinary Catheter: No History of Decub. Ulcer: No History Surgical Site Infection Following: None - Disposition Have Diagnosis and Disposition been Completed?: Yes Diagnosis: Chest pain Disposition: AGAINST MEDICAL ADVICE Disposition Time: 21:30 Condition: UNKNOWN Discharge Instructions (ExitCare): Chest Pain (ED)
[2017-02-25] MEDS ORDERED: Nitroglycerin 2% Ointment Foilpak UD TOP STA (19:47)
[2017-02-25] MEDS ORDERED: Aspirin 325 mg EC Tablets PO STA (19:47)
[2017-02-25 19:57] LABS: BASO # 0.02 K/mm3 (0.0-2.0); BASO % 0.2 % (0.0-3.0); EOS # 0.2 (0.0-0.7); EOS % 1.8 % (1.5-5.0); GRAN # 6.99 (1.4-6.5); GRAN % 72.5 % (50.0-68.0); HEMATOCRIT 43.7 % (42.0-52.0); LYMPH # 1.8 (1.2-3.4); MEAN CELL VOLUME 79.3 fl (80.0-105.0); MEAN CORPUSCULAR HEMOGLOBIN 27.4 pg (25.0-35.0); MEAN CORPUSCULAR HGB CONC 34.6 g/dl (31.0-37.0); MEAN PLATELET VOLUME 10.4 fl (7.0-11.0); MONO # 0.6 (0.1-0.6); MONO % 6.5 % (1.0-6.0); RED CELL DISTRIBUTION WIDTH 13.5 % (11.5-14.5); WHITE BLOOD COUNT 9.6 10^3/ul (4.5-11.0)
[2017-02-25 20:04] LABS: ALB/GLOB RATIO 1.3 (1.1-1.8); ALKALINE PHOSPHATASE 58 U/L (38-126); ALT/SGPT 37 U/L (7-56); AST/SGOT 29 U/L (17-59); BILIRUBIN,TOTAL 0.4 mg/dL (0.2-1.3); BLOOD UREA NITROGEN 12 mg/dL (7-21); CALCIUM 9.4 mg/dL (8.4-10.5); CARBON DIOXIDE 25 mmol/L (21-33); CHLORIDE 104 mmol/L (98-107); GFR AFRICAN-AMERICAN > 60; GLUCOSE,RANDOM 112 mg/dL (70-110); POTASSIUM 4.1 mmol/L (3.6-5.0); SODIUM 141 mmol/L (132-148); TOTAL PROTEIN 7.6 g/dL (5.8-8.3)
[2017-02-25 20:17] LABS: TROPONIN I < 0.01 ng/mL
--- NOTE | 2017-02-25 21:24 | RAD ---
HISTORY: cp COMPARISON: Chest x-ray performed 02/06/17, CTA chest performed 02/06/17 TECHNIQUE: Chest, one view. FINDINGS: Examination limited by habitus. LUNGS: No focal consolidation. Please note that chest x-ray has limited sensitivity for the detection of pulmonary masses. PLEURA: No significant pleural effusion identified. No definite pneumothorax . CARDIOVASCULAR: The cardiomediastinal silhouette appears within normal limits of size. OSSEOUS STRUCTURES: No acute osseous abnormality identified. VISUALIZED UPPER ABDOMEN: Unremarkable. OTHER FINDINGS: None. IMPRESSION: No focal consolidation, significant pleural effusion, or definite pneumothorax identified.
[2017-02-25 21:31] VITALS: RESP 16; O2SAT 99
[2017-02-25 21:34] VITALS: BP 143/80; PULSE 87
--- NOTE | 2017-02-27 07:23 | CARD ---
APPROVED REPORT EKG Measurement Heart [id number] [place] 156P39 [id number] <Conclusion> Normal sinus rhythm Voltage criteria for left ventricular hypertrophy Abnormal ECG
== END 2017-02-25 21:20 | disposition left against medical advice (07) ==
LOC: ED 19:22 → ERH 20:40 → UNDOADMOB 20:40 → ED 21:20
DX: R07.9 Chest pain, unspecified (principal)

== ENCOUNTER 2017-03-16 16:44 | Observation (INO) | payer OTHER ==
--- NOTE | 2017-03-16 16:53 | ED PDOC ---
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 Pt. stated that he has this lt. sided chest pain on and off with palpitation which causing him feeling shortness of breath since 01/2017, seen at the ER 2 time and both times offer admission which he sign out against medical advice. Pt. stated that he has lt. sided chest pain with the palpitation, non-radiating, no night sweat, no weakness, mild coughing but no weight loss or night sweat, admits feeling shaky occasionally, no alcohol or drug abuse. Past Medical History - Provider Review Nursing Documentation Reviewed: Yes - Infectious Disease Hx of Infectious Diseases: None - Tetanus Immunization Tetanus Immunization: Unknown - Cardiac Hx Cardiac Disorders: No Hx Hypertension: Yes - Pulmonary Hx Asthma: Yes - Neurological Hx Neurological Disorder: No - HEENT Hx HEENT Disorder: No - Renal Hx Renal Disorder: No - Endocrine/Metabolic Hx Endocrine Disorders: No - Hematological/Oncological Hx Blood Disorders: No - Integumentary Hx Dermatological Disorder: No - Musculoskeletal/Rheumatological Hx Back Pain: Yes - Gastrointestinal Hx Gastrointestinal Disorders: No - Genitourinary/Gynecological Hx Genitourinary Disorders: Yes Other/Comment: overproductive spermatic cord - Psychiatric Hx Psychophysiologic Disorder: No Hx Substance Use: No - Anesthesia Hx Anesthesia: No Hx Anesthesia Reactions: No Hx Malignant Hyperthermia: No Family/Social History - Physician Review Nursing Documentation Reviewed: Yes Family/Social History: Unknown Family HX Smoking Status: Never Smoked Hx Alcohol Use: Yes Hx Substance Use: No Allergies/Home Meds Allergies/Adverse Reactions: Allergies No Known Allergies Allergy (Verified 03/16/17 17:02) Home Medications: Home Meds Medication Instructions Recorded Confirmed Atenolol [Tenormin] 25 mg PO DAILY 02/25/17 03/16/17 Review of Systems - Review of Systems Constitutional: absent: Fatigue, Fevers Eyes: absent: Vision Changes ENT: absent: Hearing Changes Respiratory: SOB. absent: Cough, Sputum, Wheezing Cardiovascular: Chest Pain, Palpitations. absent: Edema Gastrointestinal: absent: Abdominal Pain, Diarrhea, Nausea, Vomiting Musculoskeletal: absent: Arthralgias, Back Pain Skin: absent: Rash, Pruritis, Skin Lesions Neurological: absent: Headache Physical Exam Vital Signs Reviewed: Yes Vital Signs Temp Pulse Resp BP Pulse Ox 03/16/17 20:46 91 H 16 135/80 97 03/16/17 20:00 95 H 18 138/79 97 03/16/17 18:58 91 H 16 140/87 100 03/16/17 16:53 98.4 F 102 H 18 142/91 H 100 Temperature: Afebrile Blood Pressure: Hypertensive Pulse: Tachycardic Respiratory Rate: Normal Appearance: Positive for: Well-Appearing, Non-Toxic Pain Distress: Mild Mental Status: Positive for: Alert and Oriented X 3 - Systems Exam Head: Present: Atraumatic, Normocephalic Pupils: Present: PERRL Extroacular Muscles: Present: EOMI Conjunctiva: Present: Normal Mouth: Present: Moist Mucous Membranes Neck: Present: Normal Range of Motion Respiratory/Chest: Present: Clear to Auscultation, Good Air Exchange. No: Respiratory Distress, Accessory Muscle Use, Wheezes, Decreased Breath Sounds, Rales, Retracting, Rhonchi, Tachypneic, Tender to Palpation Cardiovascular: Present: Regular Rate and Rhythm, Normal S1, S2. No: Murmurs Abdomen: Present: Normal Bowel Sounds. No: Tenderness, Distention, Peritoneal Signs Back: Present: Normal Inspection Upper Extremity: Present: Normal Inspection, Other (no tremors). No: Cyanosis, Edema Lower Extremity: Present: Normal Inspection. No: Edema Neurological: Present: GCS=15, Speech Normal, Motor Func Grossly Intact, Gait Normal, Memory Normal, Other (no tongue fasciculations) Skin: Present: Warm, Dry, Normal Color. No: Rashes Psychiatric: Present: Alert, Oriented x 3, Normal Insight, Normal Concentration Medical Decision Making ED Course and Treatment: 03/16/17 17:15 -labs -ekg/cxr -IVF/xanax 03/16/17 18:22 -EKG: Sinus tachycardia @ 103 BPM, no ST elevation or depression, mild T wave inversion on lead aVF. -Chest x-ray show no consolidation/effusion/pneumothorax. -Labs show elevated d-dimer 0.63 and potassium 3.4 which I replaced with potassium chloride 20meq po, no relief with the xanax and aspirin 325mg po added , CTA added. 03/16/17 21:29 -CTA Impression: 1. This CTA study is suboptimal, with poor enhancement of the pulmonary arteries. Pulmonary embolism can therefore not be excluded. If further evaluation is clinically indicated, a VQ scan is recommended. 2. Within the left lower lobe of the lung on series 5 image 61, there is a stable 4 mm nodule. A follow-up CT in 6-12 months is recommended. 3. There is hypodense but infiltration of the liver. There is mild splenomegaly. 4. Incidental/non-acute findings are described above. -Pt. has no abdominal pain, no rectal bleeding or dark color stool, no history of GI bleed, refused guaiac test. -I explained to the patient and he agreed to be admitted as this can be suspected PE vs. suspected ACS. -Will anticoagulate the patient with lovenox and VQ scan tomorrow -Hospitalist paged, discussed with ER attending DR. Webb about the plan and agreed on the admission. 03/16/17 21:41 -Lovenox 115mg SC ordered. -I spoke to the medical billing coder bond runner DR. Maldonado and DR. Taylor, discussed about the case/labs/radiology results about inconclusive study of CTA result, agreed on anticogulate but request heparin over lovenox and repeat v/q scan tomorrow. -IV heparin 80units/kg IV bolus and then continuous infusion of 18 units/kg/hr standard protocol ordered. 03/16/17 22:09 -Dr. Taylor came to the ER evaluated the patient and agreed on the lovenox ( discontinue the heparin) as the v/q scan is tomorrow. - Lab Interpretations Lab Results: 03/16/17 17:05 03/16/17 17:05 Lab Results 03/16/17 17:05: PT 10.8, INR 1.00, APTT 26.6 03/16/17 17:05: Sodium 142, Potassium 3.5 L, Chloride 102, Carbon Dioxide 27, Anion Gap 17, BUN 13, Creatinine 1.0, Est GFR ( Amer) > 60, Est GFR (Non- Af Amer) > 60, Random Glucose 127 H, Calcium 9.3, Total Bilirubin 0.3, AST 40, ALT 41, Alkaline Phosphatase 53, Lactate Dehydrogenase 478, Total Creatine Kinase 684 H, CK-MB (CK-2) 2.5, CK-MB (CK-2) % Cancelled, Troponin I < 0.01, NT- Pro-B Natriuret Pep 74.7, Total Protein 7.5, Albumin 4.3, Globulin 3.1, Albumin/ Globulin Ratio 1.4 03/16/17 17:05: D-Dimer, Quantitative 0.63 H 03/16/17 17:05: WBC 8.8, RBC 5.12, Hgb 14.0, Hct 40.8 L, MCV 79.7 L, MCH 27.3, MCHC 34.3, RDW 13.5, Plt Count 229, MPV 9.9, Gran % 75.9 H, Lymph % (Auto) 16.4 L, [place] % (Auto) 7.4 H, Eos % (Auto) 0.2 L, Baso % (Auto) 0.1, Gran # 6.64 H, Lymph # 1.4, [place] # 0.7 H, Eos # 0.0, Baso # 0.01 Interpretation: Abnormal lab values (d-dimer 0.63) - RAD Interpretation Radiology Orders: 03/16/17 17:11 CHEST PORTABLE [RAD] Stat 03/16/17 18:21 ANGIO CHEST PE PROTOCOL [CT] Stat chest xray: no consolidation/effusion/pneumothorax. CT Chest: FINDINGS: Pulmonary arteries: This CTA study is suboptimal, with poor enhancement of the pulmonary arteries. Pulmonary embolism can therefore not be excluded. Aorta: No acute findings. No thoracic aortic aneurysm. Lungs: Within the left lower lobe of the lung on series 5 image 61, there is a stable 4 mm nodule. No confluent infiltrate. No lung mass. Pleural space: No significant effusion. No pneumothorax. Heart: No cardiomegaly. No significant pericardial effusion. No evidence of RV dysfunction. BUSTER HARKINS | Final Radiology Report CONFIDENTIALITY STATEMENT This report is intended only for use by the referring physician, and only in accordance with law. If you received this in error, call [phone]. Page 2 of 2 Mediastinum: The distal esophagus is gas-filled, suggestive of a small hiatal hernia. There is mild heterogeneous density of the fat within the anterior mediastinum, which may be contributed by thymic tissue or inflammation. Bones/joints: Hypertrophic degenerative changes are noted within the spine. Lymph nodes: No significant mediastinal lymphadenopathy. Spleen: There is hypodense but infiltration of the liver. There is mild splenomegaly. IMPRESSION: 1. This CTA study is suboptimal, with poor enhancement of the pulmonary arteries. Pulmonary embolism can therefore not be excluded. If further evaluation is clinically indicated, a VQ scan is recommended. 2. Within the left lower lobe of the lung on series 5 image 61, there is a stable 4 mm nodule. A follow-up CT in 6-12 months is recommended. 3. There is hypodense but infiltration of the liver. There is mild splenomegaly. 4. Incidental/non-acute findings are described above. Thank you for allowing us to participate in the care of your patient. Dictated and Authenticated by: Johan Dumas MD 03/16/2017 9:21 PM Eastern Time ([place] & [place]) Expediter: Radiologist - EKG Interpretation EKG Interpretation (Text): 03/16/17 17:15 -EKG: Sinus tachycardia @ 103 BPM, no ST elevation or depression, mild T wave inversion on lead aVF. Interpreted by ED Physician: Yes Type: 12 lead EKG - Medication Orders Current Medication Orders: Albuterol Sulfate (Albuterol 0.083% Inhal Blaire (2.5 Mg/3 Ml) Ud) 2.5 mg IH [id number] PRN PRN Reason: WHEEZING Aspirin (Ecotrin) 81 mg PO DAILY [facility] Last Admin: 03/17/17 09:36 Dose: 81 mg Atenolol (Tenormin) 25 mg PO DAILY [facility] Last Admin: 03/17/17 09:36 Dose: 25 mg MAR Pulse and Blood Pressure Document 03/17/17 09:36 JFR (Rec: 03/17/17 09:37 JFR [id number]) Pulse Pulse Rate (60-90) 92 Blood Pressure Blood Pressure (100/60-150/90) 138/81 Enoxaparin Sodium (Lovenox) 115 mg SC Q12H ANISHA PRN Reason: Protocol Stop: 03/22/17 10:01 Last Admin: 03/17/17 09:37 Dose: 115 mg Subcutaneous Administrations Document 03/17/17 09:37 JFR (Rec: 03/17/17 09:37 JFR [id number]) Injection Site MAR Injection Site Right Abdomen Charges for Administration # of Subcutaneous Administrations 1 Pantoprazole Sodium (Protonix Ec Tab) 40 mg PO 0600 ANISHA Last Admin: 03/17/17 05:34 Dose: 40 mg Discontinued Medications Alprazolam (Xanax) 0.5 mg PO STAT STA PRN Reason: Protocol Stop: 03/16/17 17:12 Last Admin: 03/16/17 17:35 Dose: 0.5 mg Aspirin (Aspirin) 325 mg PO STAT STA Stop: 03/16/17 18:22 Last Admin: 03/16/17 18:57 Dose: 325 mg Enoxaparin Sodium (Lovenox) 115 mg SC STAT STA PRN Reason: Protocol Stop: 03/16/17 22:09 Last Admin: 03/16/17 22:49 Dose: 115 mg Subcutaneous Administrations Document 03/16/17 22:49 OCS (Rec: 03/16/17 22:49 OCS [id number]) Injection Site MAR Injection Site Umbilicus Charges for Administration # of Subcutaneous Administrations 1 Sodium Chloride (Sodium Chloride 0.9%) 1,000 mls @ 100 mls/hr IV .Q10H ANISHA Last Admin: 03/17/17 09:37 Dose: 100 mls/hr eMAR Start Stop Document 03/17/17 09:37 JFR (Rec: 03/17/17 09:37 JFR [id number]) Intravenous Solution Start Date 03/17/17 Start Time 09:37 Iodixanol (Visipaque 320 Mg/Ml 100 Ml) Confirm Administered Dose 100 ml IV .STK- MED ONE Stop: 03/16/17 19:22 Potassium Chloride (K-Dur 20 Meq Er Tab) 20 meq PO STAT STA Stop: 03/16/17 17:52 Last Admin: 03/16/17 18:57 Dose: 20 meq - PA / CHASER HELPER / Resident Statement / has reviewed & agrees with the documentation as recorded. Disposition/Present on Arrival - Present on Arrival Any Indicators Present on Arrival: No History of DVT/PE: No History of Uncontrolled Diabetes: No Urinary Catheter: No History of Decub. Ulcer: No History Surgical Site Infection Following: None - Disposition Have Diagnosis and Disposition been Completed?: Yes Diagnosis: Chest pain, Palpitation, Shortness of breath, Tachycardia Disposition: HOSPITALIZED Disposition Time: 21:30 Patient Plan: Observation, Telemetry Patient Problems: Current Active Problems Problem Status Onset Chest pain Acute Palpitation Acute Shortness of breath Acute Tachycardia Acute Condition: STABLE"
[2017-03-16] MEDS: Sodium Chloride 0.9% 1,000 ML IV SCH (17:36)
[2017-03-16 17:40] LABS: BASO # 0.01 K/mm3 (0.0-2.0); BASO % 0.1 % (0.0-3.0); EOS % 0.2 % (1.5-5.0); GRAN # 6.64 (1.4-6.5); GRAN % 75.9 % (50.0-68.0); HEMATOCRIT 40.8 % (42.0-52.0); LYMPH # 1.4 (1.2-3.4); LYMPH % 16.4 % (22.0-35.0); MEAN CELL VOLUME 79.7 fl (80.0-105.0); MEAN CORPUSCULAR HEMOGLOBIN 27.3 pg (25.0-35.0); MEAN CORPUSCULAR HGB CONC 34.3 g/dl (31.0-37.0); MEAN PLATELET VOLUME 9.9 fl (7.0-11.0); MONO # 0.7 (0.1-0.6); MONO % 7.4 % (1.0-6.0); RED CELL DISTRIBUTION WIDTH 13.5 % (11.5-14.5); WHITE BLOOD COUNT 8.8 10^3/ul (4.5-11.0)
[2017-03-16 17:47] LABS: ALB/GLOB RATIO 1.4 (1.1-1.8); ALKALINE PHOSPHATASE 53 U/L (38-126); ALT/SGPT 41 U/L (7-56); AST/SGOT 40 U/L (17-59); BILIRUBIN,TOTAL 0.3 mg/dL (0.2-1.3); BLOOD UREA NITROGEN 13 mg/dL (7-21); CALCIUM 9.3 mg/dL (8.4-10.5); CARBON DIOXIDE 27 mmol/L (21-33); CHLORIDE 102 mmol/L (98-107); GFR AFRICAN-AMERICAN > 60; GLUCOSE,RANDOM 127 mg/dL (70-110); POTASSIUM 3.5 mmol/L (3.6-5.0); SODIUM 142 mmol/L (132-148); TOTAL PROTEIN 7.5 g/dL (5.8-8.3)
[2017-03-16] MEDS ORDERED: Potassium Chloride 20 mEq ER Tab PO STA (17:51)
[2017-03-16 18:00] LABS: TROPONIN I < 0.01 ng/mL
--- NOTE | 2017-03-16 18:31 | RAD ---
HISTORY: chest pain COMPARISON: Chest x-ray performed 02/25/17 TECHNIQUE: Chest, one view. FINDINGS: Examination limited by habitus. LUNGS: No focal consolidation. Please note that chest x-ray has limited sensitivity for the detection of pulmonary masses. PLEURA: No significant pleural effusion identified. No definite pneumothorax . CARDIOVASCULAR: The cardiomediastinal silhouette appears within normal limits of size. OSSEOUS STRUCTURES: No acute osseous abnormality identified. VISUALIZED UPPER ABDOMEN: Unremarkable. OTHER FINDINGS: None. IMPRESSION: No focal consolidation, significant pleural effusion, or definite pneumothorax identified.
[2017-03-16] MEDS ORDERED: Iodixanol 320 MG/ML 100 ML BOTTLE IV ONE (19:21)
--- NOTE | 2017-03-16 21:21 | CT ---
EXAM: CT Angiography Chest With Intravenous Contrast EXAM DATE/TIME: 03/16/2017 6:21 PM CLINICAL HISTORY: The patient age is 36 years old and is male; Abnormal findings; Abnormal diagnostic tests; Elevated d-dimer; Additional info: Mildly elevated d-dimer, tachycardic Facility exam id and description: Ct [facility] angio chest pe protocol TECHNIQUE: Axial computed tomographic angiography images of the chest with intravenous contrast using pulmonary embolism protocol. All CT scans at this facility use one or more dose reduction techniques, viz.: automated exposure control; ma/kV adjustment per patient size (including targeted exams where dose is matched to indication; i.e. head); or iterative reconstruction technique. MIP reconstructed images were created and reviewed. Coronal and sagittal reformatted images were created and reviewed. CONTRAST: 96 mL of VISI administered intravenously. COMPARISON: CT - ANGIO CHEST PE PROTOCOL 02/06/2017 8:28:02 PM FINDINGS: Pulmonary arteries: This CTA study is suboptimal, with poor enhancement of the pulmonary arteries. Pulmonary embolism can therefore not be excluded. Aorta: No acute findings. No thoracic aortic aneurysm. Lungs: Within the left lower lobe of the lung on series 5 image 61, there is a stable 4 mm nodule. No confluent infiltrate. No lung mass. Pleural space: No significant effusion. No pneumothorax. Heart: No cardiomegaly. No significant pericardial effusion. No evidence of RV dysfunction. Mediastinum: The distal esophagus is gas-filled, suggestive of a small hiatal hernia. There is mild heterogeneous density of the fat within the anterior mediastinum, which may be contributed by thymic tissue or inflammation. Bones/joints: Hypertrophic degenerative changes are noted within the spine. Lymph nodes: No significant mediastinal lymphadenopathy. Spleen: There is hypodense but infiltration of the liver. There is mild splenomegaly. IMPRESSION: 1. This CTA study is suboptimal, with poor enhancement of the pulmonary arteries. Pulmonary embolism can therefore not be excluded. If further evaluation is clinically indicated, a VQ scan is recommended. 2. Within the left lower lobe of the lung on series 5 image 61, there is a stable 4 mm nodule. A follow-up CT in 6-12 months is recommended. 3. There is hypodense but infiltration of the liver. There is mild splenomegaly. 4. Incidental/non-acute findings are described above.
[2017-03-16] MEDS ORDERED: Enoxaparin 120 mg Syringe SC STA ×2 (21:39→22:08)
[2017-03-16] MEDS ORDERED: Heparin 25,000units in D5W 25,000 UNITS/250 ML BAG IV PRN (21:52)
[2017-03-16 21:54] LABS: PARTIAL THROMBOPLASTIN TIME 26.6 Seconds (23.7-30.8)
[2017-03-17] MEDS ORDERED: Albuterol 0.083% Inhal Sol (2.5 mg/3 mL) UD IH PRN (01:26)
[2017-03-17 05:06] VITALS: BMI 41.5
[2017-03-17] MEDS ORDERED: Pantoprazole 40 mg EC Tab PO SCH (06:00)
--- NOTE | 2017-03-17 06:19 | CP.PCM.HP ---
<CITLALLI ALLISON - Last Filed: 03/17/17 06:10> History of Present Illness - History of Present Illness History of Present Illness: Citlalli Allison DO PGY1 - Internal Medicine H&P CC: Chest pain HPI: 36m with PMH of asthma, HTN, and lumbar radiculopathy presented to ER complaining of chest pain that started earlier that day. Pain was associated with diaphoresis and lightheadedness. Pain did not radiate. 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 He has had this pain before several times in the past two months. He received Xanax, ASA, and Lovenox in the ED, and now denies any CP or SOB. He also denies F/C, N/V/D/C, abdominal pain, calf pain or swelling. PMH: Asthma, HTN, Lumbar radiculopathy PSH: None Medications: Atenolol, Ventolin as needed Soc: Denies Tobacco, ETOH, or illicits All: NKDA ROS: As above Present on Admission - Present on Admission Any Indicators Present on Admission: No History of DVT/PE: No Past Patient History - Infectious Disease Hx of Infectious Diseases: None - Tetanus Immunizations Tetanus Immunization: Unknown - Past Social History Smoking Status: Never Smoked - CARDIAC Hx Cardiac Disorders: Yes Hx Hypertension: Yes - PULMONARY Hx Respiratory Disorders: Yes Hx Asthma: Yes - NEUROLOGICAL Hx Neurological Disorder: No - HEENT Hx HEENT Problems: No - RENAL Hx Chronic Kidney Disease: No - ENDOCRINE/METABOLIC Hx Endocrine Disorders: No - HEMATOLOGICAL/ONCOLOGICAL Hx Blood Disorders: No - INTEGUMENTARY Hx Dermatological Problems: No - MUSCULOSKELETAL/RHEUMATOLOGICAL Hx Back Pain: Yes Hx Falls: No - GASTROINTESTINAL Hx Gastrointestinal Disorders: No - GENITOURINARY/GYNECOLOGICAL Hx Genitourinary Disorders: No - PSYCHIATRIC Hx Psychophysiologic Disorder: Yes Hx Anxiety: Yes Hx Substance Use: No - SURGICAL HISTORY Hx Surgeries: No - ANESTHESIA Hx Anesthesia: No Hx Anesthesia Reactions: No Hx Malignant Hyperthermia: No Meds Allergies/Adverse Reactions: Allergies Allergy/AdvReac Type Severity Reaction Status Date / Time No Known Allergies Allergy Verified 03/16/17 17:02 Physical Exam - Constitutional Appears: Non-toxic, No Acute Distress - Head Exam Head Exam: ATRAUMATIC, NORMOCEPHALIC - Eye Exam Eye Exam: EOMI, Normal appearance, PERRL - ENT Exam ENT Exam: Mucous Membranes Moist, Normal Exam - Neck Exam Neck exam: Negative for: Lymphadenopathy, Thyromegaly - Respiratory Exam Respiratory Exam: Clear to Auscultation Bilateral. absent: Rales, Rhonchi, Wheezes - Cardiovascular Exam Cardiovascular Exam: RRR, +S1, +S2 - GI/Abdominal Exam GI & Abdominal Exam: Normal Bowel Sounds, Soft. absent: Tenderness - Extremities Exam Extremities exam: Negative for: calf tenderness, pedal edema - Neurological Exam Neurological exam: Alert, CN II-XII Intact, Oriented x3 - Psychiatric Exam Psychiatric exam: Normal Affect, Normal Mood - Skin Skin Exam: Dry, Intact Results - Vital Signs Recent Vital Signs: Last Vital Signs Temp 98.9 F 03/17/17 02:20 Pulse 73 03/17/17 04:16 Resp 18 03/17/17 02:20 BP 126/89 03/17/17 02:20 Pulse Ox 97 03/16/17 20:46 - Labs Result Diagrams: 03/16/17 17:05 03/16/17 17:05 Labs: Laboratory Results - last 24 hr 03/17/17 01:40 Troponin I < 0.01 Assessment & Plan - Assessment and Plan (Free Text) Assessment: 36 yo M with PMH of HTN, asthma, and lumbar radiculopathy, who presented with recurrent chest pain Plan: 1. CP r/o ACS, r/o PE - CP resolved after patient received 325mg ASA and 0.5mg Xanax - EKG in ER shows sinus tach at 103 BPM, with T-wave inversion on aVF which is a normal variant - CXR shows no active disease, pending official read - Trop negative x1, continue to trend - Elevated D-dimer 0.63 noted, so CTA was done, but noted to be suboptimal, so unable to exclude PE - VQ scan ordered - Lower extremity venous duplex ordered - Patient received Lovenox 115mg in the ER, continue lovenox 115mg BID - Vital signs currently stable, continue to monitor 2. h/o HTN - Continue atenolol 3. h/o Asthma - Continue PRN ventolin GI/DVT Ppx Patient seen, discussed, and reviewed with attending <Jaci Taylor - Last Filed: 03/17/17 07:30> Results - Vital Signs Recent Vital Signs: Last Vital Signs Temp 98.1 F 03/17/17 06:00 Pulse 82 03/17/17 06:00 Resp 22 03/17/17 06:00 BP 138/81 03/17/17 06:00 Pulse Ox 98 03/17/17 06:00 - Labs Result Diagrams: 03/17/17 06:57 03/16/17 17:05 Labs: Laboratory Results - last 24 hr 03/17/17 03/17/17 03/17/17 01:40 06:57 06:57 WBC 7.2 RBC 4.90 Hgb 13.3 L Hct 39.1 L MCV 79.8 L MCH 27.1 MCHC 34.0 RDW 13.7 Plt Count 221 MPV 9.8 Gran % 57.4 Lymph % (Auto) 32.0 [place] % (Auto) 8.6 H Eos % (Auto) 1.7 Baso % (Auto) 0.3 Gran # 4.16 Lymph # 2.3 [place] # 0.6 Eos # 0.1 Baso # 0.02 PT 10.9 INR 1.01 APTT 30.6 Troponin I < 0.01 Attending/Attestation - Attestation I have personally seen and examined this patient.: Yes I have fully participated in the care of the patient.: Yes I have reviewed all pertinent clinical information: Yes Notes (Text): 03/17/17 07:25 Agree with above. In addition, work up in the ER revealed possibility of PE but this was inconclusive,hence a Ventilation Perfusion scan was ordered for this AM.
[2017-03-17 06:43] VITALS: O2SAT 98
[2017-03-17 07:09] LABS: BASO # 0.02 K/mm3 (0.0-2.0); BASO % 0.3 % (0.0-3.0); EOS # 0.1 (0.0-0.7); EOS % 1.7 % (1.5-5.0); GRAN # 4.16 (1.4-6.5); GRAN % 57.4 % (50.0-68.0); HEMATOCRIT 39.1 % (42.0-52.0); LYMPH # 2.3 (1.2-3.4); MEAN CELL VOLUME 79.8 fl (80.0-105.0); MEAN CORPUSCULAR HEMOGLOBIN 27.1 pg (25.0-35.0); MEAN PLATELET VOLUME 9.8 fl (7.0-11.0); MONO # 0.6 (0.1-0.6); MONO % 8.6 % (1.0-6.0); RED CELL DISTRIBUTION WIDTH 13.7 % (11.5-14.5); WHITE BLOOD COUNT 7.2 10^3/ul (4.5-11.0)
[2017-03-17 07:20] LABS: INR 1.01 (0.93-1.08); PARTIAL THROMBOPLASTIN TIME 30.6 Seconds (23.7-30.8)
[2017-03-17 07:37] LABS: ALB/GLOB RATIO 1.2 (1.1-1.8); ALKALINE PHOSPHATASE 49 U/L (38-126); ALT/SGPT 38 U/L (7-56); AST/SGOT 30 U/L (17-59); BILIRUBIN,TOTAL 0.7 mg/dL (0.2-1.3); BLOOD UREA NITROGEN 9 mg/dL (7-21); CALCIUM 8.5 mg/dL (8.4-10.5); CARBON DIOXIDE 29 mmol/L (21-33); CHLORIDE 106 mmol/L (98-107); GFR AFRICAN-AMERICAN > 60; GLUCOSE,RANDOM 90 mg/dL (70-110); MAGNESIUM 2.1 mg/dL (1.7-2.2); PHOSPHOROUS 2.7 mg/dL (2.5-4.5); POTASSIUM 3.9 mmol/L (3.6-5.0); SODIUM 143 mmol/L (132-148); TOTAL PROTEIN 6.7 g/dL (5.8-8.3)
[2017-03-17] MEDS: Sodium Chloride 0.9% 1,000 ML IV SCH (09:37)
[2017-03-17] MEDS ORDERED: Enoxaparin 120 mg Syringe SC SCH (10:00)
[2017-03-17 13:17] VITALS: BP 146/94; RESP 20; TEMP 98.9
[2017-03-17 14:00] LABS: CHOLESTEROL 109 mg/dL (130-200)
--- NOTE | 2017-03-17 14:12 | US ---
HISTORY: Leg pain and swelling. Evaluate for DVT PHYSICIAN(S): Keegan Calderon MD. TECHNIQUE: Duplex sonography and color-flow Doppler with graded compression were used to evaluate the deep venous systems of both lower extremities. FINDINGS: The visualized deep venous systems of both lower extremities are sonographically normal and compressible. Normal wave forms and augmentation are seen. There is no sonographic evidence for deep venous thrombosis in the visualized segments of both lower extremities. IMPRESSION: No sonographic evidence for deep venous thrombosis in the visualized segments of both lower extremities.
--- NOTE | 2017-03-17 15:16 | NM ---
COMPARISON: March 16, 2017. CT angiogram March 16, 2017. Single-view chest TECHNIQUE: mCi technetium 99-m Xe-133 Gas. mCI technetium 99-m MAA administered intravenously. FINDINGS: VENTILATION COMPONENT: Mildly heterogeneous ventilation with retention of radionuclide in the central tracheobronchial tree and ingestion of radionuclide and stomach. Focal area of diminished ventilation right upper lobe PERFUSION COMPONENT: Peripheral scratched matching defects right upper lobe. IMPRESSION: Low probability ventilation perfusion scan for pulmonary embolism.
[2017-03-17 16:21] VITALS: PULSE 75
--- NOTE | 2017-03-17 18:19 | CP.PCM.DIS ---
<Melissa Dow - Last Filed: 03/17/17 18:31> Provider - Provider Date of Admission: 03/16/17 21:42 Attending physician: Glenna Thomason MD Primary care physician: Katherin Martinez MD Consults: None Time Spent in preparation of Discharge (in minutes): 33 Hospital Course - Lab Results Lab Results: Most Recent Lab Values WBC 7.2 10^3/ul (4.5-11.0) 03/17/17 06:57 RBC 4.90 10^6/uL (3.5-6.1) 03/17/17 06:57 Hgb 13.3 g/dL (14.0-18.0) L 03/17/17 06:57 Hct 39.1 % (42.0-52.0) L 03/17/17 06:57 MCV 79.8 fl (80.0-105.0) L 03/17/17 06:57 MCH 27.1 pg (25.0-35.0) 03/17/17 06:57 MCHC 34.0 g/dl (31.0-37.0) 03/17/17 06:57 RDW 13.7 % (11.5-14.5) 03/17/17 06:57 Plt Count 221 10^3/uL (120.0-450.0) 03/17/17 06:57 MPV 9.8 fl (7.0-11.0) 03/17/17 06:57 Gran % 57.4 % (50.0-68.0) 03/17/17 06:57 Lymph % (Auto) 32.0 % (22.0-35.0) 03/17/17 06:57 [place] % (Auto) 8.6 % (1.0-6.0) H 03/17/17 06:57 Eos % (Auto) 1.7 % (1.5-5.0) 03/17/17 06:57 Baso % (Auto) 0.3 % (0.0-3.0) 03/17/17 06:57 Gran # 4.16 (1.4-6.5) 03/17/17 06:57 Lymph # 2.3 (1.2-3.4) 03/17/17 06:57 [place] # 0.6 (0.1-0.6) 03/17/17 06:57 Eos # 0.1 (0.0-0.7) 03/17/17 06:57 Baso # 0.02 K/mm3 (0.0-2.0) 03/17/17 06:57 PT 10.9 Seconds (9.9-11.8) 03/17/17 06:57 INR 1.01 (0.93-1.08) 03/17/17 06:57 APTT 30.6 Seconds (23.7-30.8) 03/17/17 06:57 D-Dimer, Quantitative 0.63 mg/L FEU (0-0.50) H 03/16/17 17:05 Sodium 143 mmol/L (132-148) 03/17/17 06:57 Potassium 3.9 mmol/L (3.6-5.0) 03/17/17 06:57 Chloride 106 mmol/L (98-107) 03/17/17 06:57 Carbon Dioxide 29 mmol/L (21-33) 03/17/17 06:57 Anion Gap 12 (10-20) 03/17/17 06:57 BUN 9 mg/dL (7-21) 03/17/17 06:57 Creatinine 0.9 mg/dL (0.5-1.4) 03/17/17 06:57 Est GFR ( Amer) > 60 03/17/17 06:57 Est GFR (Non-Af Amer) > 60 03/17/17 06:57 Random Glucose 90 mg/dL (70-110) 03/17/17 06:57 Calcium 8.5 mg/dL (8.4-10.5) 03/17/17 06:57 Phosphorus 2.7 mg/dL (2.5-4.5) 03/17/17 06:57 Magnesium 2.1 mg/dL (1.7-2.2) 03/17/17 06:57 Total Bilirubin 0.7 mg/dL (0.2-1.3) 03/17/17 06:57 AST 30 U/L (17-59) 03/17/17 06:57 ALT 38 U/L (7-56) 03/17/17 06:57 Alkaline Phosphatase 49 U/L (38-126) 03/17/17 06:57 Lactate Dehydrogenase 478 U/L (333-699) 03/16/17 17:05 Total Creatine Kinase 684 U/L (35-230) H 03/16/17 17:05 CK-MB (CK-2) 2.5 ng/mL (0.0-3.6) 03/16/17 17:05 CK-MB (CK-2) % Cancelled 03/16/17 17:05 Troponin I < 0.01 ng/mL 03/17/17 07:00 NT-Pro-B Natriuret Pep 74.7 pg/mL (0-450) 03/16/17 17:05 Total Protein 6.7 g/dL (5.8-8.3) 03/17/17 06:57 Albumin 3.7 g/dL (3.0-4.8) 03/17/17 06:57 Globulin 3.0 gm/dL 03/17/17 06:57 Albumin/Globulin Ratio 1.2 (1.1-1.8) 03/17/17 06:57 Triglycerides 129 mg/dL (35-160) 03/17/17 13:30 Cholesterol 109 mg/dL (130-200) L 03/17/17 13:30 LDL Cholesterol Direct 55 mg/dL (0-129) 03/17/17 13:30 HDL Cholesterol 34 mg/dL (29-60) 03/17/17 13:30 TSH 3rd Generation 1.78 mIU/mL (0.46-4.68) 03/17/17 13:30 - Hospital Course Hospital Course: Melissa Dow DO, PGY-1, Hospitalist Service 36 year old male with a past medical history of asthma and recently diagnosed hypertension who presented with 1 month of palpitations and chest discomfort from 14:00-16:00 on his day of admission that was not related to exertion or shortness of breath, but were alarming enough for him to come to the ED for further evaluation. Diagnostic testing, including, but not limited to, EKG, cardiac enzymes, and echocardiogram were negative for ACS; however, the patient did have a mildly elevated D-dimer and a suboptimal CT PE angiogram that was inconclusive in ruling out PE. Thus, a V/Q scan was ordered and interpreted as low probabily of pulmonary embolism . The patient was discharged home with the below written instructions, records of all his resulted diagnostic tests, a work excuse, and strict recommendations on diet and exercise. - Date & Time of H&P Date of H&P: 03/17/17 Time of H&P: 18:31 Discharge Exam - Head Exam Head Exam: ATRAUMATIC, NORMOCEPHALIC - Eye Exam Eye Exam: EOMI, Normal appearance, PERRL - ENT Exam ENT Exam: Mucous Membranes Moist, Normal Oropharynx - Neck Exam Neck exam: Normal Inspection - Respiratory Exam Respiratory Exam: Clear to PA & Lateral, NORMAL BREATHING PATTERN. absent: Rales - Cardiovascular Exam Cardiovascular Exam: RRR, +S1, +S2 - GI/Abdominal Exam GI & Abdominal Exam: Normal Bowel Sounds. absent: Guarding, Unremarkable - Extremities Exam Extremities exam: normal inspection, pedal pulses present - Back Exam Back exam: NORMAL INSPECTION. absent: CVA tenderness (L), CVA tenderness (R) - Neurological Exam Neurological exam: Alert, CN II-XII Intact, Normal Gait, Oriented x3 - Psychiatric Exam Psychiatric exam: Normal Affect, Normal Mood - Skin Skin Exam: Dry, Intact, Normal Color, Warm Discharge Plan - Follow Up Plan Condition: STABLE Disposition: HOME/ ROUTINE Instructions: Chest Pain (GEN) Additional Instructions: 1. Follow up with PMD in 1 week. 2. Follow up with Cardiology if needed. 3. Diet, exercise and weight reduction. Referrals: Katherin Martinez MD [Primary Care Provider] - <Glenna Thomason - Last Filed: 03/18/17 10:44> Provider - Provider Date of Admission: 03/16/17 21:42 Attending physician: Glenna Thomason MD Primary care physician: Katherin Martinez MD Hospital Course - Lab Results Lab Results: Most Recent Lab Values WBC 7.2 10^3/ul (4.5-11.0) 03/17/17 06:57 RBC 4.90 10^6/uL (3.5-6.1) 03/17/17 06:57 Hgb 13.3 g/dL (14.0-18.0) L 03/17/17 06:57 Hct 39.1 % (42.0-52.0) L 03/17/17 06:57 MCV 79.8 fl (80.0-105.0) L 03/17/17 06:57 MCH 27.1 pg (25.0-35.0) 03/17/17 06:57 MCHC 34.0 g/dl (31.0-37.0) 03/17/17 06:57 RDW 13.7 % (11.5-14.5) 03/17/17 06:57 Plt Count 221 10^3/uL (120.0-450.0) 03/17/17 06:57 MPV 9.8 fl (7.0-11.0) 03/17/17 06:57 Gran % 57.4 % (50.0-68.0) 03/17/17 06:57 Lymph % (Auto) 32.0 % (22.0-35.0) 03/17/17 06:57 [place] % (Auto) 8.6 % (1.0-6.0) H 03/17/17 06:57 Eos % (Auto) 1.7 % (1.5-5.0) 03/17/17 06:57 Baso % (Auto) 0.3 % (0.0-3.0) 03/17/17 06:57 Gran # 4.16 (1.4-6.5) 03/17/17 06:57 Lymph # 2.3 (1.2-3.4) 03/17/17 06:57 [place] # 0.6 (0.1-0.6) 03/17/17 06:57 Eos # 0.1 (0.0-0.7) 03/17/17 06:57 Baso # 0.02 K/mm3 (0.0-2.0) 03/17/17 06:57 PT 10.9 Seconds (9.9-11.8) 03/17/17 06:57 INR 1.01 (0.93-1.08) 03/17/17 06:57 APTT 30.6 Seconds (23.7-30.8) 03/17/17 06:57 D-Dimer, Quantitative 0.63 mg/L FEU (0-0.50) H 03/16/17 17:05 Sodium 143 mmol/L (132-148) 03/17/17 06:57 Potassium 3.9 mmol/L (3.6-5.0) 03/17/17 06:57 Chloride 106 mmol/L (98-107) 03/17/17 06:57 Carbon Dioxide 29 mmol/L (21-33) 03/17/17 06:57 Anion Gap 12 (10-20) 03/17/17 06:57 BUN 9 mg/dL (7-21) 03/17/17 06:57 Creatinine 0.9 mg/dL (0.5-1.4) 03/17/17 06:57 Est GFR ( Amer) > 60 03/17/17 06:57 Est GFR (Non-Af Amer) > 60 03/17/17 06:57 Random Glucose 90 mg/dL (70-110) 03/17/17 06:57 Hemoglobin A1c 5.0 % (4.2-6.5) 03/17/17 13:30 Calcium 8.5 mg/dL (8.4-10.5) 03/17/17 06:57 Phosphorus 2.7 mg/dL (2.5-4.5) 03/17/17 06:57 Magnesium 2.1 mg/dL (1.7-2.2) 03/17/17 06:57 Total Bilirubin 0.7 mg/dL (0.2-1.3) 03/17/17 06:57 AST 30 U/L (17-59) 03/17/17 06:57 ALT 38 U/L (7-56) 03/17/17 06:57 Alkaline Phosphatase 49 U/L (38-126) 03/17/17 06:57 Lactate Dehydrogenase 478 U/L (333-699) 03/16/17 17:05 Total Creatine Kinase 684 U/L (35-230) H 03/16/17 17:05 CK-MB (CK-2) 2.5 ng/mL (0.0-3.6) 03/16/17 17:05 CK-MB (CK-2) % Cancelled 03/16/17 17:05 Troponin I < 0.01 ng/mL 03/17/17 07:00 NT-Pro-B Natriuret Pep 74.7 pg/mL (0-450) 03/16/17 17:05 Total Protein 6.7 g/dL (5.8-8.3) 03/17/17 06:57 Albumin 3.7 g/dL (3.0-4.8) 03/17/17 06:57 Globulin 3.0 gm/dL 03/17/17 06:57 Albumin/Globulin Ratio 1.2 (1.1-1.8) 03/17/17 06:57 Triglycerides 129 mg/dL (35-160) 03/17/17 13:30 Cholesterol 109 mg/dL (130-200) L 03/17/17 13:30 LDL Cholesterol Direct 55 mg/dL (0-129) 03/17/17 13:30 HDL Cholesterol 34 mg/dL (29-60) 03/17/17 13:30 TSH 3rd Generation 1.78 mIU/mL (0.46-4.68) 03/17/17 13:30 Attending/Attestation - Attestation I have personally seen and examined this patient.: Yes I have fully participated in the care of the patient.: Yes I have reviewed all pertinent clinical information, including history, physical exam and plan: Yes Notes (Text): 03/18/17 10:39 Attending note; Patient seen and examined with resident. Patient is a 36-year-old male admitted with chest pain and palpitations. No history of arrhythmia. Patient takes medications for hypertension. Admitted to telemetry and monitored closely. Cardiac enzymes negative. Echocardiogram normal. Elevated d-dimer; CT angios indeterminant. VQ is normal. patient denies any chest pain, tachycardia. Offered cardiology consult. Patient is willing to follow up with primary care and cardiology of his own choice. All the lab results and scan report given. Advised to come back to the ER for any chest pain or palpitation. Might need Holter monitor/stress test as outpatient. Patient is aware of the plan. follow-up with MD Castrejon. Diagnosis; Musculoskeletal pain Palpitations Obesity Hypertension
--- NOTE | 2017-03-18 00:36 | CARD ---
APPROVED REPORT EXAM: Two-dimensional and M-mode echocardiogram with Doppler and color Doppler. INDICATION LV Function:SystolicDiastolic 2D DIMENSIONS Left Atrium (2D)3.7 (1.6-4.0cm)IVSd1.5 (0.7-1.1cm) LVDd5.3 (3.9-5.9cm)PWd1.2 (0.7-1.1cm) LVDs3.6 (2.5-4.0cm)FS (%) 32.3 % LVEF (%)59.9 (>50%) M-Mode DIMENSIONS Aortic Root3.00 (2.2-3.7cm)Aortic Cusp Exc.2.00 (1.5-2.0cm) Aortic Valve AoV Peak Kwqbmmvs955.0cm/Deann Peak GR.9mmHg Mitral Valve MV E Grahvima11.3cm/sMV A Loaghdcp78.3cm/sE/A ratio1.2 TDI E/Lateral E'0.0E/Medial E'0.0 Tricuspid Valve TR Peak [id number]/sRAP [id number] Peak Gr.13mmHg [id number] LEFT VENTRICLE The left ventricle is normal size. There is normal left ventricular wall thickness. The left ventricular function is normal. The left ventricular ejection fraction is within the normal range. There is normal LV segmental wall motion. The left ventricular diastolic function is normal. RIGHT VENTRICLE The right ventricle is normal size. There is normal right ventricular wall thickness. The right ventricular systolic function is normal. ATRIA The left atrium size is normal. The right atrium size is normal. AORTIC VALVE The aortic valve is thickened but opens well. There is trace aortic regurgitation. There is no aortic valvular stenosis. MITRAL VALVE The mitral valve is normal in structure. There is no mitral valve regurgitation noted. TRICUSPID VALVE The tricuspid valve is normal in structure. There is no tricuspid valve regurgitation noted. GREAT VESSELS The aortic root is normal in size. The IVC was not visualized. PERICARDIAL EFFUSION There is no pericardial effusion. <Conclusion> The left ventricle is normal size. There is normal left ventricular wall thickness. The left ventricular function is normal. The left ventricular ejection fraction is within the normal range. There is normal LV segmental wall motion. The left ventricular diastolic function is normal.
--- NOTE | 2017-03-18 01:43 | CARD ---
APPROVED REPORT EKG Measurement Heart [id number] <Conclusion> Sinus tachycardia Voltage criteria for left ventricular hypertrophy Abnormal ECG
== END 2017-03-17 17:05 | disposition home or self-care (01) ==
LOC: ED 16:44 → ERH 21:42 → 2RSO 23:54
PROVIDERS: ADMIT Internal Medicine; ATTEND Internal Medicine
DX: R07.89 Other chest pain (principal); R00.2 Palpitations; I10 Essential (primary) hypertension; E66.9 Obesity, unspecified; J45.909 Unspecified asthma, uncomplicated; M54.16 Radiculopathy, lumbar region; Z68.41 Body mass index [BMI] 40.0-44.9, adult
CPT/HCPCS: 36415; 71010; 71275; 78582; 80053; 80061; 82550; 82553; 83036; 83615; 83735; 83880; 84100; 84443; 84484; 85025; 85378; 85610; 85730; 93005; 93306; 93970; 96372; 99285; G0378; J1650; J7040; Q9967

== ENCOUNTER 2017-04-03 14:52 | Emergency (ER) | payer OTHER ==
[2017-04-03 15:02] VITALS: BMI 39.5
[2017-04-03 15:05] VITALS: TEMP 98.2
--- NOTE | 2017-04-03 15:28 | ED PDOC ---
Arrival/HPI - General Historian: Patient - History of Present Illness Time/Duration: > week Symptom Onset: Gradual Symptom Course: Unchanged, Intermittent Quality: Burning Severity Level: Mild Context: Walking, Exertion, Home - General Chief Complaint: Medical Clearance Time Seen by Provider: 04/03/17 15:07 - History of Present Illness Narrative History of Present Illness (Text): 04/03/17 15:23 36M w/PMH sig for HTN, asthma evaluated for fatigue x 3 days. Pt reports sleeping 10-12hrs due to fatigue. Also reports diaphoresis with exertion, burning mid-sternal chest discomfort with ambulation, diarrhea (yellow, liquid) , and DIAMOND. Pt reports discontinuing his Atenalol 2 weeks ago due to hypotension upon walking- BP's 90/50s. Denies ever having before, palpitations, LE edema, N/V/F/C, ab pain, dysuria, hematuria, hematochezia, other complaints. PMH: HTN (was on Atenolol 25mg), asthma (on Proair) PSH: Denies All: Seasonal SH: Rare, special occasion ETOH use, denies tobacco or illicit drug use PMD: Joykutsavage (Megha Sterling) Modifying Factors (Text): 04/03/17 15:23 ambulation (Megha Sterling) Past Medical History - Provider Review Nursing Documentation Reviewed: Yes - Infectious Disease Hx of Infectious Diseases: None - Tetanus Immunization Tetanus Immunization: Unknown - Cardiac Hx Cardiac Disorders: Yes Hx Hypertension: Yes - Pulmonary Hx Asthma: Yes - Neurological Hx Neurological Disorder: No - HEENT Hx HEENT Disorder: No - Renal Hx Renal Disorder: No - Endocrine/Metabolic Hx Endocrine Disorders: No - Hematological/Oncological Hx Blood Disorders: No - Integumentary Hx Dermatological Disorder: No - Musculoskeletal/Rheumatological Hx Back Pain: Yes - Gastrointestinal Hx Gastrointestinal Disorders: No - Genitourinary/Gynecological Hx Genitourinary Disorders: Yes Other/Comment: overproductive spermatic cord - Psychiatric Hx Psychophysiologic Disorder: No Hx Substance Use: No - Anesthesia Hx Anesthesia: No Hx Anesthesia Reactions: No Hx Malignant Hyperthermia: No Family/Social History - Physician Review Nursing Documentation Reviewed: Yes Family/Social History: No Known Family HX Smoking Status: Never Smoked Hx Alcohol Use: Yes Hx Substance Use: No Allergies/Home Meds Allergies/Adverse Reactions: Allergies No Known Allergies Allergy (Verified 04/03/17 15:01) Home Medications: Home Meds Medication Instructions Recorded Confirmed Atenolol [Tenormin] 25 mg PO DAILY 04/03/17 04/03/17 Review of Systems - Physician Review All systems were reviewed & negative as marked: Yes - Review of Systems Constitutional: Fatigue. absent: Normal, Fevers Eyes: Normal. absent: Vision Changes ENT: Normal. absent: Sore Throat Respiratory: SOB. absent: Normal, Cough Cardiovascular: DIAMOND. absent: Normal, Palpitations, Edema, Calf Pain, Orthopnea Gastrointestinal: Diarrhea. absent: Normal, Abdominal Pain, Constipation, Nausea, Vomiting, Appetite Changes, Hematochezia, Hematemesis Genitourinary Male: Normal. absent: Dysuria, Frequency, Hematuria Musculoskeletal: Normal. absent: Back Pain Skin: Normal. absent: Rash Neurological: Normal. absent: Headache Endocrine: Diaphoresis (with walking). absent: Normal Physical Exam Vital Signs Reviewed: Yes Temperature: Afebrile Blood Pressure: Normal Pulse: Regular Respiratory Rate: Normal Appearance: Positive for: Non-Toxic, Comfortable Pain Distress: None Mental Status: Positive for: Alert and Oriented X 3 - Systems Exam Head: Present: Atraumatic, Normocephalic Extroacular Muscles: Present: EOMI Conjunctiva: Present: Normal Mouth: Present: Moist Mucous Membranes Nose (External): Present: Atraumatic Neck: Present: Normal Range of Motion Respiratory/Chest: Present: Clear to Auscultation, Good Air Exchange. No: Respiratory Distress, Accessory Muscle Use Cardiovascular: Present: Regular Rate and Rhythm, Normal S1, S2. No: Murmurs Abdomen: Present: Distention (obese), Normal Bowel Sounds. No: Tenderness, Peritoneal Signs, Guarding Back: Present: Normal Inspection. No: CVA Tenderness Upper Extremity: Present: Normal Inspection. No: Cyanosis, Edema Lower Extremity: Present: Normal Inspection. No: Edema Neurological: Present: GCS=15, CN II-XII Intact, Speech Normal Skin: Present: Warm, Dry, Normal Color. 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 Perc score - negative. (Megha Sterling) 04/03/17 20:22 pt seen with resdient. cp/sob/fatigue x few days. recent admission. labs ekg cxr neg. stable for d/c no e/o of cardiac, anemia, chf, infectious etiology ( Eliazar Hart) - Lab Interpretations Lab Results: 04/03/17 15:39 04/03/17 15:39 Lab Results 04/03/17 15:39: WBC 7.4, RBC 5.16, Hgb 14.3, Hct 41.3 L, MCV 80.0, MCH 27.7, MCHC 34.6, RDW 13.3, Plt Count 252, MPV 9.8, Gran % 66.4, Lymph % (Auto) 24.1, [place] % (Auto) 6.6 H, Eos % (Auto) 2.8, Baso % (Auto) 0.1, Gran # 4.89, Lymph # 1.8, [place] # 0.5, Eos # 0.2, Baso # 0.01 04/03/17 15:39: Sodium 144, Potassium 3.9, Chloride 107, Carbon Dioxide 28, Anion Gap 13, BUN 13, Creatinine 1.0, Est GFR ( Amer) > 60, Est GFR (Non- Af Amer) > 60, Random Glucose 105, Calcium 9.4, Total Bilirubin 0.5, AST 23, ALT 31, Alkaline Phosphatase 47, Lactate Dehydrogenase 375, Total Creatine Kinase 73, Troponin I < 0.01, NT-Pro-B Natriuret Pep 62.6, Total Protein 7.0, Albumin 4.0, Globulin 3.0, Albumin/Globulin Ratio 1.3 - RAD Interpretation Narrative RAD Interpretations (Text): 04/03/17 16:25 No active disease (Megha Sterling) Radiology Orders: 04/03/17 15:21 CHEST PORTABLE [RAD] Stat - EKG Interpretation EKG Interpretation (Text): 04/03/17 16:24 NSR at 84bpm (Megha Sterling) Disposition/Present on Arrival - Present on Arrival Any Indicators Present on Arrival: No History of DVT/PE: No History of Uncontrolled Diabetes: No Urinary Catheter: No History of Decub. Ulcer: No History Surgical Site Infection Following: None - Disposition Have Diagnosis and Disposition been Completed?: Yes Disposition Time: 16:42 Patient Plan: Discharge - Disposition Diagnosis: Fatigue, Chest pain Disposition: HOME/ ROUTINE Condition: STABLE Discharge Instructions (ExitCare): Chest Pain (ED), Fatigue (ED) Additional Instructions: please follow up with your doctor/clinic and specialist. return to er with worsening symptoms or concerns. Referrals: [facility] [Outside] - Follow up with primary [facility] [Outside] - Follow up with primary [facility] at [facility] [place] [Outside] - Follow up with primary Cuong Blanton MD [Staff Provider] - Follow up with primary PCP,NO [Primary Care Provider] - Follow up with primary Forms: [employer] (Khmer), WORK NOTE
[2017-04-03 15:49] LABS: BASO # 0.01 K/mm3 (0.0-2.0); BASO % 0.1 % (0.0-3.0); EOS # 0.2 (0.0-0.7); EOS % 2.8 % (1.5-5.0); GRAN # 4.89 (1.4-6.5); GRAN % 66.4 % (50.0-68.0); HEMATOCRIT 41.3 % (42.0-52.0); LYMPH # 1.8 (1.2-3.4); LYMPH % 24.1 % (22.0-35.0); MEAN CORPUSCULAR HEMOGLOBIN 27.7 pg (25.0-35.0); MEAN CORPUSCULAR HGB CONC 34.6 g/dl (31.0-37.0); MEAN PLATELET VOLUME 9.8 fl (7.0-11.0); MONO # 0.5 (0.1-0.6); MONO % 6.6 % (1.0-6.0); RED CELL DISTRIBUTION WIDTH 13.3 % (11.5-14.5); WHITE BLOOD COUNT 7.4 10^3/ul (4.5-11.0)
[2017-04-03 16:10] LABS: ALB/GLOB RATIO 1.3 (1.1-1.8); ALKALINE PHOSPHATASE 47 U/L (38-126); ALT/SGPT 31 U/L (7-56); AST/SGOT 23 U/L (17-59); BILIRUBIN,TOTAL 0.5 mg/dL (0.2-1.3); BLOOD UREA NITROGEN 13 mg/dL (7-21); CALCIUM 9.4 mg/dL (8.4-10.5); CARBON DIOXIDE 28 mmol/L (21-33); CHLORIDE 107 mmol/L (98-107); GFR AFRICAN-AMERICAN > 60; GLUCOSE,RANDOM 105 mg/dL (70-110); POTASSIUM 3.9 mmol/L (3.6-5.0); SODIUM 144 mmol/L (132-148)
--- NOTE | 2017-04-03 16:11 | RAD ---
HISTORY: cardiac eval COMPARISON: 03/16/2017 FINDINGS: LUNGS: No active pulmonary disease. PLEURA: No significant pleural effusion identified, no pneumothorax apparent. CARDIOVASCULAR: Normal. OSSEOUS STRUCTURES: No significant abnormalities. VISUALIZED UPPER ABDOMEN: Normal. OTHER FINDINGS: None. IMPRESSION: No active disease.
[2017-04-03 16:24] LABS: TROPONIN I < 0.01 ng/mL
[2017-04-03 16:29] VITALS: BP 138/99; PULSE 81; RESP 18; O2SAT 95
--- NOTE | 2017-04-04 11:46 | CARD ---
APPROVED REPORT EKG Measurement Heart [id number] RI [id number] <Conclusion> Normal sinus rhythm Voltage criteria for left ventricular hypertrophy Abnormal ECG
== END 2017-04-03 16:55 | disposition home or self-care (01) ==
LOC: ED 14:52
DX: R07.9 Chest pain, unspecified (principal); R53.83 Other fatigue; I10 Essential (primary) hypertension

== ENCOUNTER 2017-08-11 17:23 | Emergency (ER) | payer OTHER ==
[2017-08-11 18:11] VITALS: BMI 38.4
[2017-08-11] MEDS ORDERED: Sodium Chloride 0.9% 1,000 ML IV STA (21:41)
[2017-08-11 22:16] VITALS: RESP 18
[2017-08-11 22:21] LABS: BASO # 0.02 K/mm3 (0.0-2.0); BASO % 0.2 % (0.0-3.0); EOS # 0.3 (0.0-0.7); EOS % 3.1 % (1.5-5.0); GRAN # 5.93 (1.4-6.5); GRAN % 62.7 % (50.0-68.0); HEMOGLOBIN 15.5 g/dL (14.0-18.0); LYMPH # 2.3 (1.2-3.4); LYMPH % 24.3 % (22.0-35.0); MEAN CELL VOLUME 80.6 fl (80.0-105.0); MEAN CORPUSCULAR HEMOGLOBIN 27.3 pg (25.0-35.0); MEAN CORPUSCULAR HGB CONC 33.9 g/dl (31.0-37.0); MONO # 0.9 (0.1-0.6); MONO % 9.7 % (1.0-6.0); RBC 5.67 10^6/uL (3.5-6.1); RED CELL DISTRIBUTION WIDTH 13.4 % (11.5-14.5); WHITE BLOOD COUNT 9.5 10^3/ul (4.5-11.0)
[2017-08-11 22:35] LABS: ALB/GLOB RATIO 1.2 (1.1-1.8); ALBUMIN 4.3 g/dL (3.0-4.8); ALT/SGPT 42 U/L (7-56); AST/SGOT 24 U/L (17-59); BLOOD UREA NITROGEN 10 mg/dL (7-21); CALCIUM 9.8 mg/dL (8.4-10.5); GFR AFRICAN-AMERICAN > 60; GFR NON-AFRICAN AMERICAN > 60
[2017-08-11 22:41] LABS: URINE BILIRUBIN NEGATIVE (NEGATIVE); URINE BLOOD NEGATIVE (NEGATIVE); URINE GLUCOSE (UA) NEGATIVE (NEGATIVE); URINE LEUKOCYTE ESTERASE NEGATIVE Leu/uL (NEGATIVE); URINE NITRATE NEGATIVE (NEGATIVE); URINE PROTEIN NEGATIVE mg/dL (<30 mg/dL); URINE UROBILINOGEN 0.2 E.U./dL (<1 E.U./dL)
[2017-08-11 22:42] LABS: URINE APPEARANCE CLEAR (CLEAR); URINE COLOR YELLOW (YELLOW)
[2017-08-11 22:46] LABS: INFLUENZA A B NEGATIVE FOR FLU A/B (NEGATIVE)
--- NOTE | 2017-08-11 22:48 | CT ---
EXAM: CT Head Without Intravenous Contrast CLINICAL HISTORY: 36 years old, male; Pain; Headache; Headache not specified TECHNIQUE: Axial computed tomography images of the head/brain without intravenous contrast. All CT scans at this facility use one or more dose reduction techniques, viz.: automated exposure control; ma/kV adjustment per patient size (including targeted exams where dose is matched to indication; i.e. head); or iterative reconstruction technique. Coronal and sagittal reformatted images were created and reviewed. COMPARISON: CT - HEAD W/O CONTRAST 2017-01-30 17:03 FINDINGS: Brain: No intracranial hemorrhage. No mass. No definite edema. Ventricles: No hydrocephalus. Bones/joints: No acute fracture. Soft tissues: Unremarkable. Sinuses: Mild mucosal thickening of maxillary sinuses. Scattered minimal to mild mucosal thickening of remaining sinuses. Mastoid air cells: No mastoid effusion. Orbits: Unremarkable as visualized. IMPRESSION: 1. No definite acute intracranial abnormality. 2. Incidental/non-acute findings are described above.
--- NOTE | 2017-08-12 01:13 | ED PDOC ---
Arrival/HPI <Yves Gracia - Last Filed: 08/12/17 01:30> - General Historian: Patient - History of Present Illness Time/Duration: Other (6 days) Symptom Course: Unchanged Context: Home <Juliet Olivares - Last Filed: 08/12/17 02:10> - General Chief Complaint: Headache Time Seen by Provider: 08/11/17 20:39 - History of Present Illness Narrative History of Present Illness (Text): 08/12/17 01:09 A 36 year old male presents to the emergency department complaining of an intermittent headache for 6 days. Patient notes subjective intermittent fevers, cough, sore throat, body aches, and joint pain to shoulders, elbows, hips and knees. Patient took Motrin, with no improvement of symptoms. Patient denies any nausea, vomiting, abdominal pain, chest pain, shortness of breath, dizziness, weakness, blurred vision, or any other complaints. Patient denies any sick contact at home. PMD: Dr. Katherin Martinez (Juliet Olivares) Past Medical History - Provider Review Nursing Documentation Reviewed: Yes - Infectious Disease Hx of Infectious Diseases: None - Tetanus Immunization Tetanus Immunization: Unknown - Cardiac Hx Cardiac Disorders: Yes Hx Hypertension: Yes - Pulmonary Hx Asthma: Yes - Neurological Hx Neurological Disorder: No - HEENT Hx HEENT Disorder: No - Renal Hx Renal Disorder: No - Endocrine/Metabolic Hx Endocrine Disorders: No - Hematological/Oncological Hx Blood Disorders: No - Integumentary Hx Dermatological Disorder: No - Musculoskeletal/Rheumatological Hx Back Pain: Yes - Gastrointestinal Hx Gastrointestinal Disorders: No - Genitourinary/Gynecological Hx Genitourinary Disorders: Yes Other/Comment: overproductive spermatic cord - Psychiatric Hx Psychophysiologic Disorder: No Hx Substance Use: No - Anesthesia Hx Anesthesia: No Hx Anesthesia Reactions: No Hx Malignant Hyperthermia: No <Juliet Olivares - Last Filed: 08/12/17 02:10> Family/Social History - Physician Review Nursing Documentation Reviewed: Yes Family/Social History: No Known Family HX Smoking Status: Never Smoked Hx Alcohol Use: Yes Hx Substance Use: No <Juliet Olivares - Last Filed: 08/12/17 02:10> Allergies/Home Meds <Yves Gracia - Last Filed: 08/12/17 01:30> <Juliet Olivares T - Last Filed: 08/12/17 02:10> Allergies/Adverse Reactions: Allergies No Known Allergies Allergy (Verified 04/03/17 15:01) Home Medications: Home Meds Medication Instructions Recorded Confirmed Atenolol [Tenormin] 25 mg PO DAILY 04/03/17 08/11/17 Review of Systems - Physician Review All systems were reviewed & negative as marked: Yes - Review of Systems Constitutional: Fevers Eyes: absent: Vision Changes ENT: Sore Throat Respiratory: Cough. absent: SOB Cardiovascular: absent: Chest Pain Gastrointestinal: absent: Abdominal Pain, Nausea, Vomiting Musculoskeletal: Arthralgias, Myalgias Neurological: Headache. absent: Dizziness, Focal Weakness <Juliet Olivares - Last Filed: 08/12/17 02:10> Physical Exam Vital Signs Reviewed: Yes Temperature: Afebrile Blood Pressure: Normal Pulse: Tachycardic Respiratory Rate: Normal Appearance: Positive for: Well-Appearing, Non-Toxic, Comfortable Pain Distress: None Mental Status: Positive for: Alert and Oriented X 3 - Systems Exam Head: Present: Atraumatic, Normocephalic Pupils: Present: PERRL Extroacular Muscles: Present: EOMI Conjunctiva: Present: Normal Ears: Present: Normal, NORMAL TM, Normal Canal. No: Erythema, TM Bulging, Fluid , TM Perf Mouth: Present: Moist Mucous Membranes Pharnyx: Present: Normal. No: ERYTHEMA, EXUDATE, TONSILS ENLARGED Nose (Internal): Present: Normal Inspection Neck: Present: Normal Range of Motion. No: Meningeal Signs, MIDLINE TENDERNESS , Paraspinal Tenderness, Lymphadenopathy Respiratory/Chest: Present: Clear to Auscultation, Good Air Exchange. No: Respiratory Distress, Accessory Muscle Use Cardiovascular: Present: Regular Rate and Rhythm, Normal S1, S2. No: Murmurs Abdomen: Present: Normal Bowel Sounds. No: Tenderness, Distention, Peritoneal Signs, Rebound, Guarding Back: Present: Normal Inspection. No: Midline Tenderness, Paraspinal Tenderness Upper Extremity: Present: Normal Inspection, Normal ROM, NORMAL PULSES. No: Cyanosis, Edema, Erythema Lower Extremity: Present: Normal Inspection, NORMAL PULSES, Normal ROM. No: Edema, CALF TENDERNESS, Erythema Neurological: Present: GCS=15, CN II-XII Intact, Speech Normal, Gait Normal Skin: Present: Warm, Dry, Normal Color. No: Rashes Psychiatric: Present: Alert, Oriented x 3, Normal Insight, Normal Concentration <Juliet Olivares Aliya - Last Filed: 08/12/17 02:10> Vital Signs Temp Pulse Resp BP Pulse Ox 08/12/17 01:22 98.2 F 89 18 143/89 97 08/11/17 22:14 109 H 18 120/75 99 08/11/17 20:15 95 H 17 118/70 99 08/11/17 18:10 98.3 F 108 H 18 115/65 98 Medical Decision Making <Yves Gracia - Last Filed: 08/12/17 01:30> Reassessment Condition: Re-examined, Improved <Juliet Olivares Aliya - Last Filed: 08/12/17 02:10> ED Course and Treatment: 08/12/17 01:09 Impression: A 36 year old male with intermittent headaches and body aches for 6 days. Plan: -- Head CT -- Chest xray -- Labs -- Urinalysis -- Throat culture -- Rapid strep and flu -- Lyme titer -- IV fluids, Toradol and Tylenol -- Reassess and disposition Progress Notes: IV fluids and Toradol administered for pain. Labs reviewed, CBC, CMP and urinalysis in normal limits. Strep and flu negative. Chest xray negative, no infiltrate or effusion. Lyme titer pending. head ct; FINDINGS: Brain: No intracranial hemorrhage. No mass. No definite edema. Ventricles: No hydrocephalus. Bones/joints: No acute fracture. Soft tissues: Unremarkable. Sinuses: Mild mucosal thickening of maxillary sinuses. Scattered minimal to mild mucosal thickening of remaining sinuses. Mastoid air cells: No mastoid effusion. Orbits: Unremarkable as visualized. IMPRESSION: 1. No definite acute intracranial abnormality. 2. Incidental/non-acute findings are described above. Tamiflu given by mouth On re-evaluation, patient feels better. Vital signs are stable. He denies any headache or dizziness. I have discussed the results and plan with the patient, who expresses understanding. Patient in agreement with plan to discharged home and use prescribed medication as directed. Patient is stable for discharge. Patient was instructed to follow up with PMD in the next few days or return if symptoms persist/worsen or new concerning symptoms arise. all aspects of this case were discussed the attending of record. 08/12/17 02:07 impression; headache, joint pain Motrin every 6 hours as needed for pain/fever reduction Tamiflu 1 tablet twice daily 5 days Increase fluids Follow-up primary care physician within the next 2 days Return immediately if symptoms worsen persist or if new concerning symptoms develop (Juliet Olivares) - Lab Interpretations Lab Results: 08/11/17 21:45 08/11/17 21:45 Lab Results 08/11/17 21:45: WBC 9.5 D, RBC 5.67, Hgb 15.5, Hct 45.7, MCV 80.6, MCH 27.3, MCHC 33.9, RDW 13.4, Plt Count 277, MPV 10.0, Gran % 62.7, Lymph % (Auto) 24.3, [place] % (Auto) 9.7 H, Eos % (Auto) 3.1, Baso % (Auto) 0.2, Gran # 5.93, Lymph # ( Auto) 2.3, [place] # (Auto) 0.9 H, Eos # (Auto) 0.3, Baso # (Auto) 0.02 08/11/17 21:45: Sodium 144, Potassium 3.9, Chloride 102, Carbon Dioxide 30, Anion Gap 16, BUN 10, Creatinine 1.1, Est GFR ( Amer) > 60, Est GFR (Non- Af Amer) > 60, Random Glucose 81, Calcium 9.8, Total Bilirubin 0.4, AST 24, ALT 42, Alkaline Phosphatase 57, Total Protein 7.8, Albumin 4.3, Globulin 3.6, Albumin/Globulin Ratio 1.2 08/11/17 21:45: Urine Color Yellow, Urine Appearance Clear, Urine pH 6.0, Ur Specific [place] 1.020, Urine Protein Negative, Urine Glucose (UA) Negative, Urine Ketones Negative, Urine Blood Negative, Urine Nitrate Negative, Urine Bilirubin Negative, Urine Urobilinogen 0.2, Ur Leukocyte Esterase Negative 08/11/17 21:45: Influenza Typ A,B (EIA) Negative for flu a/b, Grp A Beta Strep Ag Negative - RAD Interpretation Radiology Orders: 08/11/17 21:40 HEAD W/O CONTRAST [CT] Stat CHEST TWO VIEWS (PA/LAT) [RAD] Stat - Medication Orders Current Medication Orders: Discontinued Medications Acetaminophen (Tylenol 325mg Tab) 975 mg PO STAT STA Stop: 08/11/17 21:42 Last Admin: 08/11/17 22:04 Dose: 975 mg MAR Pain/Vitals Document 08/11/17 22:04 SF (Rec: 08/11/17 22:04 SF [id number]) Pain Reassessment Is This A Pain ReAssessment? Yes Sleep Is patient sleeping during reassessment? No Presence of Pain Presence of Pain Yes Pain Scale Used Pain Scale Used Numeric Sodium Chloride (Sodium Chloride 0.9%) 1,000 mls @ 999 mls/hr IV .Q1H1M STA Stop: 08/11/17 22:41 Last Admin: 08/11/17 22:12 Dose: 999 mls/hr eMAR Start Stop Document 08/11/17 22:12 SF (Rec: 08/11/17 22:12 SF [id number]) Intravenous Solution Start Date 08/11/17 Start Time 22:12 End Date 08/11/17 End time 22:13 Total Infusion Time 1 Ketorolac Tromethamine (Toradol) 30 mg IVP STAT STA Stop: 08/12/17 01:01 Last Admin: 08/12/17 01:31 Dose: 30 mg MAR Pain Assessment Document 08/12/17 01:31 JOL (Rec: 08/12/17 01:32 JOL [id number]) Pain Reassessment Is this a pain reassessment? No Sleep Is patient sleeping during reassessment? No Presence of Pain Presence of Pain Yes Pain Scale Used Pain Scale Used Numeric Location Pain Location Body Site Generalized Description Intensity of Pain at present 5 IVP Administration Document 08/12/17 01:31 JOL (Rec: 08/12/17 01:32 JOL [id number]) Charges for Administration # of IVP Administrations 1 Oseltamivir Phosphate (Tamiflu Cap) 75 mg PO STAT STA PRN Reason: Protocol Stop: 08/12/17 01:20 Last Admin: 08/12/17 01:32 Dose: 75 mg - PA / GARMENT FITTER / Resident Statement MD/DO has reviewed & agrees with the documentation as recorded. <Yves Gracia - Last Filed: 08/12/17 01:30> - Scribe Statement The provider has reviewed the documentation as recorded by the Scribe <Juliet Olivares - Last Filed: 08/12/17 02:10> - Scribe Statement Adalgisa Flores Provider Scribe Attestation: All medical record entries made by the Scribe were at my direction and personally dictated by me. I have reviewed the chart and agree that the record accurately reflects my personal performance of the history, physical exam, medical decision making, and the department course for this patient. I have also personally directed, reviewed, and agree with the discharge instructions and disposition. (Juliet Olivares) Disposition/Present on Arrival <Yves Gracia - Last Filed: 08/12/17 01:30> - Present on Arrival Any Indicators Present on Arrival: No History of DVT/PE: No History of Uncontrolled Diabetes: No Urinary Catheter: No History of Decub. Ulcer: No History Surgical Site Infection Following: None - Disposition Have Diagnosis and Disposition been Completed?: Yes Disposition Time: 02:09 Patient Plan: Discharge <Juliet Olivares - Last Filed: 08/12/17 02:10> - Disposition Diagnosis: Headache, Joint pain, Flu-like symptoms Disposition: HOME/ ROUTINE Condition: GOOD Additional Instructions: Motrin every 6 hours as needed for pain/fever reduction Tamiflu 1 tablet twice daily 5 days Increase fluids Follow-up primary care physician within the next 2 days Return immediately if symptoms worsen persist or if new concerning symptoms develop Prescriptions: Ibuprofen [Motrin] 600 mg PO Q6H PRN #20 tab PRN Reason: pain/fever reduction Oseltamivir [Tamiflu] 75 mg PO BID #10 cap Referrals: Katherin Martinez MD [Primary Care Provider] - Follow up with primary Forms: [employer] ([place]ayan), WORK NOTE
[2017-08-12 01:24] VITALS: BP 143/89; PULSE 89; TEMP 98.2; O2SAT 97
--- NOTE | 2017-08-12 10:10 | RAD ---
HISTORY: cough/fever COMPARISON: 04/03/2017 TECHNIQUE: Chest PA and lateral FINDINGS: LUNGS: No active pulmonary disease. PLEURA: No significant pleural effusion identified. No pneumothorax apparent. CARDIOVASCULAR: Normal. OSSEOUS STRUCTURES: No significant abnormalities. VISUALIZED UPPER ABDOMEN: Normal. OTHER FINDINGS: None. IMPRESSION: No active disease.
== END 2017-08-12 02:17 | disposition home or self-care (01) ==
LOC: ED 17:23
DX: R51 Headache (principal); M25.50 Pain in unspecified joint; J11.1 Influenza due to unidentified influenza virus with other respiratory manifestations
CPT/HCPCS: 70450; 71046; 80053; 81003; 85025; 86618; 87070; 87430; 87804; 96374; 99285; J1885; J7040

== ENCOUNTER 2017-10-20 08:58 | Emergency (ER) | payer OTHER ==
[2017-10-20 09:22] VITALS: RESP 18; TEMP 97.6; O2SAT 96; BMI 39.2
--- NOTE | 2017-10-20 09:38 | ED PDOC ---
Arrival/HPI - General Chief Complaint: Male Genitourinary Time Seen by Provider: 10/20/17 09:15 Historian: Patient - History of Present Illness Narrative History of Present Illness (Text): you were treated in the ED today for testicular pain/discomfort/burning with urination but otherwise without any nausea/vomiting/headache/dizziness/ difficulty breathing/chest pain/abdomen pain/numbness/tingling/loss of limb function/penis discharge or blood. stated not sexually active and refused sexual disease testing or treatment at this time. 10/20/17 09:35 10/20/17 09:36 Time/Duration: Other (3 days) Symptom Onset: Gradual Symptom Course: Unchanged, Intermittent Quality: Aching Severity Level: 2 Activities at Onset: Rest Context: Sitting Past Medical History - Provider Review Nursing Documentation Reviewed: Yes - Travel History Have you recently traveled outside [place] w/in the past 3 mons?: No - Infectious Disease Hx of Infectious Diseases: None - Tetanus Immunization Tetanus Immunization: Unknown - Cardiac Hx Cardiac Disorders: Yes Hx Hypertension: Yes - Pulmonary Hx Asthma: Yes - Neurological Hx Neurological Disorder: No - HEENT Hx HEENT Disorder: No - Renal Hx Renal Disorder: No - Endocrine/Metabolic Hx Endocrine Disorders: No - Hematological/Oncological Hx Blood Disorders: No - Integumentary Hx Dermatological Disorder: No - Musculoskeletal/Rheumatological Hx Back Pain: Yes - Gastrointestinal Hx Gastrointestinal Disorders: No - Genitourinary/Gynecological Hx Genitourinary Disorders: Yes Other/Comment: overproductive spermatic cord - Psychiatric Hx Psychophysiologic Disorder: No Hx Substance Use: No - Anesthesia Hx Anesthesia: No Hx Anesthesia Reactions: No Hx Malignant Hyperthermia: No Family/Social History - Physician Review Nursing Documentation Reviewed: Yes Family/Social History: No Known Family HX Smoking Status: Never Smoked Hx Alcohol Use: Yes Hx Substance Use: No Allergies/Home Meds Allergies/Adverse Reactions: Allergies No Known Allergies Allergy (Verified 10/20/17 09:16) Home Medications: Home Meds Medication Instructions Recorded Confirmed No Known Home Med 10/20/17 10/20/17 Review of Systems - Review of Systems Constitutional: Normal Eyes: Normal ENT: Normal Respiratory: Normal Cardiovascular: Normal Gastrointestinal: Normal Genitourinary Male: Dysuria Musculoskeletal: Normal Skin: Normal Neurological: Normal Endocrine: Normal Hemo/Lymphatic: Normal Psychiatric: Normal Physical Exam Vital Signs Reviewed: Yes Vital Signs Temp Pulse Resp BP Pulse Ox 10/20/17 11:39 86 18 135/91 H 96 10/20/17 09:17 97.6 F 95 H 18 138/110 H 96 Temperature: Afebrile Blood Pressure: Hypertensive Pulse: Regular Respiratory Rate: Normal Appearance: Positive for: Well-Appearing, Non-Toxic, Comfortable Pain Distress: None Mental Status: Positive for: Alert and Oriented X 3 - Systems Exam Head: Present: Atraumatic, Normocephalic Pupils: Present: PERRL Extroacular Muscles: Present: EOMI Conjunctiva: Present: Normal Ears: Present: Normal Mouth: Present: Moist Mucous Membranes Pharnyx: Present: Normal Nose (External): Present: Atraumatic Nose (Internal): Present: Normal Inspection Neck: Present: Normal Range of Motion Respiratory/Chest: Present: Clear to Auscultation, Good Air Exchange Cardiovascular: Present: Regular Rate and Rhythm Abdomen: No: Tenderness, Distention, Normal Bowel Sounds, Peritoneal Signs, Rebound, Guarding, McBurney's Point Tender, Rovsing's Sign Present, Hernias, Feeding Tubes, Ostomy Tubes, Mass/Organomegaly, Scars, Other Genitourinary Male: Present: Other ( no penis/scrotal lesions and good testicle position without tenderness and good scrotal reflex) Back: Present: Normal Inspection Upper Extremity: Present: Normal Inspection Lower Extremity: Present: Normal Inspection Neurological: Present: GCS=15, CN II-XII Intact, Speech Normal, Motor Func Grossly Intact Skin: Present: Warm, Normal Color Psychiatric: Present: Alert, Oriented x 3, Normal Insight, Normal Concentration Medical Decision Making ED Course and Treatment: you were treated in the ED today for testicular pain/discomfort/burning with urination but otherwise without any nausea/vomiting/headache/dizziness/ difficulty breathing/chest pain/abdomen pain/numbness/tingling/loss of limb function/penis discharge or blood. stated not sexually active and refused sexual disease testing or treatment at this time. You were otherwise breathing easily, smiling and talking easily, good strength/sensation, walking easily, clear lungs, no abdomen tenderness, no penis/scrotal lesions and good testicle position without tenderness and good scrotal reflex, no fever temp 97.6, stable heart rate 95, stable breathing rate18, excellent oxygen level 96% room air, elevated blood pressure 138/110 and repeat 135/91 which we recommend repeat in 2 -3 days primary care office to determine further treatment, urine test trace protein, ultrasound testicles radiology no acute findings, motrin, observation done in the ED with improvement, counselled to monitor symptoms and thus discharged home. 1. Recommend follow-up primary care 2 days to review symptoms, get final urine test results to determine further treatment, referral to urology clinic for epididymal cyst and trace protein in urine to ensure no complications/cancer development. 4. If any worsening pain, fever, chills, nausea, vomiting, difficulty breathing, numbness, loss of limb function, pain with urination or any medical condition then return to the ED. Reassessment Condition: Re-examined, Improved - Lab Interpretations Lab Results: Lab Results 10/20/17 09:36: Urine Color Yellow, Urine Appearance Clear, Urine pH 6.0, Ur Specific [place] >= 1.030, Urine Protein Trace H, Urine Glucose (UA) Negative, Urine Ketones Negative, Urine Blood Negative, Urine Nitrate Negative, Urine Bilirubin Negative, Urine Urobilinogen 0.2, Ur Leukocyte Esterase Negative, Urine RBC 0 - 2, Urine WBC 0 - 2, Ur Epithelial Cells None, Urine Bacteria Few I have reviewed the lab results: Yes - RAD Interpretation Radiology Orders: 10/20/17 09:32 TESTES DUPLEX COMPLETE [US] Stat Evening Anchor: Radiologist - Medication Orders Current Medication Orders: Discontinued Medications Ibuprofen (Motrin Tab) 800 mg PO STAT STA Stop: 10/20/17 09:32 Last Admin: 10/20/17 10:05 Dose: 800 mg Disposition/Present on Arrival - Present on Arrival Any Indicators Present on Arrival: No History of DVT/PE: No History of Uncontrolled Diabetes: No Urinary Catheter: No History of Decub. Ulcer: No History Surgical Site Infection Following: None - Disposition Have Diagnosis and Disposition been Completed?: Yes Diagnosis: Urinary frequency Disposition: HOME/ ROUTINE Disposition Time: 11:45 Patient Plan: Discharge Condition: IMPROVED Additional Instructions: you were treated in the ED today for testicular pain/discomfort/burning with urination but otherwise without any nausea/vomiting/headache/dizziness/ difficulty breathing/chest pain/abdomen pain/numbness/tingling/loss of limb function/penis discharge or blood. stated not sexually active and refused sexual disease testing or treatment at this time. You were otherwise breathing easily, smiling and talking easily, good strength/sensation, walking easily, clear lungs, no abdomen tenderness, no penis/scrotal lesions and good testicle position without tenderness and good scrotal reflex, no fever temp 97.6, stable heart rate 95, stable breathing rate18, excellent oxygen level 96% room air, elevated blood pressure 138/110 and repeat 135/91 which we recommend repeat in 2 -3 days primary care office to determine further treatment, urine test trace protein, ultrasound testicles radiology no acute findings, motrin, observation done in the ED with improvement, counselled to monitor symptoms and thus discharged home. 1. Recommend motrin as directed for pain. 2. Recommend follow- up primary care 2 days to review symptoms, get final urine test results to determine further treatment, referral to urology clinic for epididymal cyst and trace protein in urine to ensure no complications/cancer development. 3. If any worsening pain, fever, chills, nausea, vomiting, difficulty breathing, numbness , loss of limb function, pain with urination or any medical condition then return to the ED. Forms: [employer] (Urdu)
[2017-10-20 09:45] LABS: URINE APPEARANCE CLEAR (CLEAR); URINE BILIRUBIN NEGATIVE (NEGATIVE); URINE BLOOD NEGATIVE (NEGATIVE); URINE COLOR YELLOW (YELLOW); URINE GLUCOSE (UA) NEGATIVE (NEGATIVE); URINE LEUKOCYTE ESTERASE NEGATIVE Leu/uL (NEGATIVE); URINE PROTEIN TRACE mg/dL (<30 mg/dL); URINE UROBILINOGEN 0.2 E.U./dL (<1 E.U./dL)
[2017-10-20 09:58] LABS: URINE BACTERIA FEW (NEG); URINE RBC 0 - 2 /hpf (0-2); URINE WBC 0 - 2 /hpf (0-6)
--- NOTE | 2017-10-20 10:58 | US ---
HISTORY: 36yoM, testicular pain TECHNIQUE: Realtime sonography through the scrotum with color and doppler flow. COMPARISON: 07/27/2016 FINDINGS: RIGHT TESTICLE: Measures 2.6 x 3.1 x 5.1 cm. Normal echotexture and flow. RIGHT EPIDIDYMIS: Epididymal head measures 1.6 x 1.2 x 1.6 cm. Incidental finding(s): Epididymal cyst 14 x 7 x 6 mm. LEFT TESTICLE: Measures 2.8 x 3 x 4.7 cm. Normal echotexture and flow. LEFT EPIDIDYMIS: Epididymal head measures 0.9 x 1.0 x 1.3 cm. Grossly unremarkable appearance with normal flow. HYDROCELE: None. VARICOCELE: None. OTHER FINDINGS: None. IMPRESSION: No significant or acute findings to account for/ related to the clinical presentation. No significant interval change compared to the prior examination(s).
[2017-10-20 11:39] VITALS: BP 135/91; PULSE 86
== END 2017-10-20 11:47 | disposition home or self-care (01) ==
LOC: ED 08:58
DX: R35.0 Frequency of micturition (principal); I10 Essential (primary) hypertension

== ENCOUNTER 2018-05-20 18:00 | Emergency (ER) | payer OTHER ==
[2018-05-20 18:00] VITALS: BMI 39.2
[2018-05-20 18:23] VITALS: TEMP 97.9
[2018-05-20 20:44] LABS: BASO # 0.01 K/mm3 (0.0-2.0); BASO % 0.1 % (0.0-3.0); EOS # 0.4 (0.0-0.7); EOS % 5.3 % (1.5-5.0); GRAN # 3.94 (1.4-6.5); GRAN % 58.3 % (50.0-68.0); HEMOGLOBIN 14.5 g/dL (14.0-18.0); LYMPH # 1.9 (1.2-3.4); LYMPH % 27.3 % (22.0-35.0); MEAN CELL VOLUME 79.5 fl (80.0-105.0); MEAN CORPUSCULAR HEMOGLOBIN 27.2 pg (25.0-35.0); MEAN CORPUSCULAR HGB CONC 34.2 g/dl (31.0-37.0); MONO # 0.6 (0.1-0.6); RBC 5.33 10^6/uL (3.5-6.1); RED CELL DISTRIBUTION WIDTH 14.1 % (11.5-14.5); WHITE BLOOD COUNT 6.8 10^3/uL (4.5-11.0)
[2018-05-20 20:55] LABS: ALB/GLOB RATIO 1.2 (1.1-1.8); ALBUMIN 4.1 g/dL (3.0-4.8); ALT/SGPT 45 U/L (7-56); AST/SGOT 29 U/L (17-59); BLOOD UREA NITROGEN 14 mg/dL (7-21); CALCIUM 9.4 mg/dL (8.4-10.5); GFR NON-AFRICAN AMERICAN > 60
[2018-05-20 22:49] VITALS: BP 132/79; PULSE 85; RESP 18; O2SAT 100
--- NOTE | 2018-05-21 04:20 | ED PDOC ---
Arrival/HPI - General Chief Complaint: Lower Extremity Problem/Injury Time Seen by Provider: 05/20/18 18:25 Historian: Patient - History of Present Illness Narrative History of Present Illness (Text): 37 year old patient with past medical history of HTN, asthma, presents to the Emergency Department complaining of right heel pain x two weeks. Patient states he has intermittent right heel pain associated with point numbness made worse by standing for long periods of time. Pain intermittently radiates up the back of his calf. Has not taken any medication for pain. Denies trauma/injury, weakness fevers, chills, difficulty walking, ankle pain, knee pain, calf swelling, redness, back pain, headache, chest pain, SOB, or any other associated symptoms. Past Medical History - Provider Review Nursing Documentation Reviewed: Yes - Infectious Disease Hx of Infectious Diseases: None - Tetanus Immunization Tetanus Immunization: Unknown - Cardiac Hx Cardiac Disorders: Yes Hx Hypertension: Yes - Pulmonary Hx Asthma: Yes - Neurological Hx Neurological Disorder: No - HEENT Hx HEENT Disorder: No - Renal Hx Renal Disorder: No - Endocrine/Metabolic Hx Endocrine Disorders: No - Hematological/Oncological Hx Blood Disorders: No - Integumentary Hx Dermatological Disorder: No - Musculoskeletal/Rheumatological Hx Back Pain: Yes - Gastrointestinal Hx Gastrointestinal Disorders: No - Genitourinary/Gynecological Hx Genitourinary Disorders: Yes Other/Comment: overproductive spermatic cord - Psychiatric Hx Psychophysiologic Disorder: No Hx Substance Use: No - Anesthesia Hx Anesthesia: No Hx Anesthesia Reactions: No Hx Malignant Hyperthermia: No Family/Social History - Physician Review Nursing Documentation Reviewed: Yes Family/Social History: No Known Family HX Smoking Status: Never Smoked Hx Alcohol Use: Yes Frequency of alcohol use: Socially Hx Substance Use: No Allergies/Home Meds Allergies/Adverse Reactions: Allergies No Known Allergies Allergy (Verified 05/20/18 18:18) Review of Systems - Review of Systems Constitutional: Normal Eyes: Normal. absent: Vision Changes ENT: Normal. absent: Sore Throat, Sinus Congestion Respiratory: Normal. absent: SOB, Cough Cardiovascular: Normal, Calf Pain. absent: Chest Pain, Palpitations Gastrointestinal: Normal. absent: Abdominal Pain, Nausea, Vomiting Genitourinary Male: Normal Musculoskeletal: absent: Back Pain, Neck Pain (right heel pain) Skin: Normal. absent: Rash, Skin Lesions, Cellulitis Neurological: Normal. absent: Headache, Dizziness, Focal Weakness, Gait Changes Endocrine: Normal Hemo/Lymphatic: Normal Psychiatric: Normal Physical Exam Vital Signs Reviewed: Yes Vital Signs Temp Pulse Resp BP Pulse Ox 05/20/18 22:30 85 18 132/79 100 05/20/18 18:21 97.9 F 88 16 138/97 H 98 Temperature: Afebrile Blood Pressure: Hypertensive Pulse: Regular Respiratory Rate: Normal Appearance: Positive for: Well-Appearing, Non-Toxic, Comfortable Pain Distress: None Mental Status: Positive for: Alert and Oriented X 3 - Systems Exam Head: Present: Atraumatic, Normocephalic Pupils: Present: PERRL Extroacular Muscles: Present: EOMI Conjunctiva: Present: Normal Mouth: Present: Moist Mucous Membranes Neck: Present: Normal Range of Motion. No: Meningeal Signs, MIDLINE TENDERNESS, Paraspinal Tenderness Respiratory/Chest: Present: Clear to Auscultation, Good Air Exchange. No: Respiratory Distress, Accessory Muscle Use Cardiovascular: Present: Regular Rate and Rhythm, Normal S1, S2, Peripheal Pulses Present. No: Murmurs Abdomen: Present: Normal Bowel Sounds. No: Tenderness, Distention, Peritoneal Signs Back: Present: Normal Inspection. No: CVA Tenderness, Paraspinal Tenderness Upper Extremity: Present: Normal Inspection, Normal ROM, NORMAL PULSES, Neurovascularly Intact, Capillary Refill < 2s. No: Cyanosis, Edema Lower Extremity: Present: Normal Inspection, NORMAL PULSES, Normal ROM, Tenderness (bottom of right heel), Neurovascularly Intact, Capillary Refill < 2 s. No: Edema, CALF TENDERNESS, Swelling, Erythema, Deformity, Temperature Abnormalties Neurological: Present: GCS=15, CN II-XII Intact, Speech Normal, Motor Func Grossly Intact, Normal Sensory Function, Gait Normal (ambulating per baseline), Memory Normal Skin: Present: Warm, Dry, Normal Color. No: Rashes Lymphatic: No: Cervical Adenopathy Psychiatric: Present: Alert, Oriented x 3, Normal Insight, Normal Concentration, Normal Affect, Normal Mood Medical Decision Making ED Course and Treatment: Initial Plan: * CBC, CMP * Right Lower Extremity Venous Duplex * Right foot XR CBC: unremarkable CMP: unremarkable Duplex negative for DVT Right foot XR read as heel spur by me and Dr. Barr Plan of care discussed with patient, and strict instructions given regarding prescriptions, importance of follow up with podiatry, and signs to return to Emergency Department, to include worsening pain, difficulty walking, or any other new/worsening symptoms. Patient verbalizes understanding of discussion. Patient A&Ox3, ambulating with steady gait without assistance, stable for discharge home. - Lab Interpretations Lab Results: 05/20/18 20:30 05/20/18 20:30 Lab Results 05/20/18 20:30: Sodium 141, Potassium 3.8, Chloride 105, Carbon Dioxide 28, Anion Gap 11, BUN 14, Creatinine 1.0, Est GFR ( Amer) > 60, Est GFR (Non- Af Amer) > 60, Random Glucose 100, Calcium 9.4, Total Bilirubin 0.4, AST 29, ALT 45, Alkaline Phosphatase 57, Total Protein 7.5, Albumin 4.1, Globulin 3.4, Albumin/Globulin Ratio 1.2 05/20/18 20:30: WBC 6.8, RBC 5.33, Hgb 14.5, Hct 42.4, MCV 79.5 L, MCH 27.2, MCHC 34.2, RDW 14.1, Plt Count 250, MPV 10.0, Gran % 58.3, Lymph % (Auto) 27.3, Calloway % (Auto) 9.0 H, Eos % (Auto) 5.3 H, Baso % (Auto) 0.1, Gran # 3.94, Lymph # (Auto) 1.9, Calloway # (Auto) 0.6, Eos # (Auto) 0.4, Baso # (Auto) 0.01 - RAD Interpretation Radiology Orders: 05/20/18 19:04 FOOT RIGHT 3 VIEWS ROUTINE [RAD] Stat DUPLEX LOWER EXTRM VEIN RIGHT [US] Stat Disposition/Present on Arrival - Present on Arrival Any Indicators Present on Arrival: No History of DVT/PE: No History of Uncontrolled Diabetes: No Urinary Catheter: No History of Decub. Ulcer: No History Surgical Site Infection Following: None - Disposition Have Diagnosis and Disposition been Completed?: Yes Diagnosis: Heel spur Disposition: HOME/ ROUTINE Disposition Time: 22:00 Condition: STABLE Discharge Instructions (ExitCare): Heel Spurs (DC) Additional Instructions: Take naproxen for pain once daily as needed for pain Followup with podiatry within 2 days Followup with primary within 2 days Return to ER for any new/worsening symptoms Prescriptions: Naproxen 500 mg PO DAILY PRN #14 tablet PRN Reason: Pain, Moderate (4-7) Referrals: Podiatry Clinic [Outside] - Follow up with primary Forms: [employer] (Tongan), WORK NOTE
--- NOTE | 2018-05-21 10:47 | RAD ---
Date of service: 05/20/2018 PROCEDURE: Right Foot Radiographs. HISTORY: heel pain COMPARISON: None. FINDINGS: BONES: Normal. No fracture. JOINTS: Normal. SOFT TISSUES: Normal. OTHER FINDINGS: None. IMPRESSION: Normal right foot radiographs.
== END 2018-05-20 22:30 | disposition home or self-care (01) ==
LOC: ED 18:00
DX: M77.31 Calcaneal spur, right foot (principal); I10 Essential (primary) hypertension